=== PATIENT | female | born 1965 | race Caucasian/White ===

== ENCOUNTER 2019-06-03 22:07 | Inpatient (IN) | payer MEDICARE, OTHER ==
[2019-06-04 00:34] VITALS: BMI 15.5
[2019-06-04] MEDS ORDERED: HYDROmorphone 0.5 MG/0.5 ML SYRINGE IVP STA (02:30)
[2019-06-04] MEDS ORDERED: IPRATROPIUM-ALBUTEROL 3 ML NEB INHALATION PRN (02:31)
[2019-06-04] MEDS ORDERED: NITROGLYCERIN SL TABS 0.4 MG TAB SUBLINGUAL PRN (02:31)
[2019-06-04] MEDS ORDERED: ALBUTEROL NEBULIZED 2.5 MG/3 ML INHALATION PRN (02:33)
[2019-06-04] MEDS: NICOTINE 14MG/24HR PATCH TRANSDERM SCH ×2 (03:28→09:11)
[2019-06-04] MEDS: SODIUM CHLORIDE 0.9% 1,000 ML IV SCH (03:28)
[2019-06-04] MEDS: ZOLPIDEM 10 MG TAB PO SCH ×2 (03:34→21:56)
[2019-06-04] MEDS: PIPERACILLIN-TAZOBACTAM 3.375 GM in SODIUM CHLORIDE 0.9% 100 ML IVPB SCH ×3 (04:51→19:15)
[2019-06-04] MEDS: HYDROcodone/APAP 5-325MG 1 EACH TAB PO PRN ×4 (04:54→21:56)
[2019-06-04 08:16] LABS: Basophils % (A) 0 %; Eosinophils % (A) 0 %; HCT 40.7 % (34.0-46.0); Lymphocytes # (A) 0.3 k/uL (1.0-4.8); Lymphocytes % (A) 6 %; MCH 31.8 pg (25.0-35.0); MCHC 31.9 g/dL (31.0-37.0); MCV 99.5 fL (80.0-100.0); Mean Platelet Volume 7.2; Monocytes # (A) 0.1 k/uL (0-1.0); Monocytes % (A) 2 %; Neutrophils # (A) 4.7 k/uL (1.3-7.7); Neutrophils % (A) 91 %; Platelet Count 232 k/uL (150-450); RBC 4.09 m/uL (3.80-5.40); RDW 12.9 % (11.5-15.5); WBC 5.2 k/uL (3.8-10.6)
[2019-06-04 08:24] LABS: Albumin 3.7 g/dL (3.5-5.0); Calcium 8.8 mg/dL (8.4-10.2); Potassium 3.8 mmol/L (3.5-5.1); Total Bilirubin 0.3 mg/dL (0.2-1.3); Total Protein 6.1 g/dL (6.3-8.2)
[2019-06-04] MEDS ORDERED: FAMOTIDINE 20 MG TAB PO SCH (09:00)
[2019-06-04] MEDS: GABAPENTIN 300 MG CAP PO SCH ×3 (09:10→20:26)
[2019-06-04] MEDS: PRAVASTATIN SODIUM 40 MG TAB PO SCH (09:10)
[2019-06-04] MEDS: predniSONE 5 MG TAB PO SCH (09:10)
[2019-06-04] MEDS: FUROSEMIDE 40 MG TAB PO SCH (09:10)
[2019-06-04] MEDS: PARoxetine 20 MG TAB PO SCH (09:10)
[2019-06-04] MEDS: POTASSIUM CHLORIDE ER 10 MEQ TAB.ER.PRT PO SCH (09:10)
[2019-06-04] MEDS: EZETIMIBE 10 MG TAB PO SCH (09:11)
[2019-06-04] MEDS: HEPARIN SODIUM,PORCINE 5,000 UNIT/ML 1 ML VIAL SQ SCH ×2 (09:11→16:13)
[2019-06-04] MEDS: CARVEDILOL 3.125 MG TAB PO SCH ×2 (09:11→16:14)
--- NOTE | 2019-06-04 12:39 | P.HPIM ---
History of Present Illness H&P Date: 06/04/19 Chief Complaint: Left elbow swelling Patient is a 54-year-old female with a known history of asthma/COPD, hypertension, hyperlipidemia, and depression was initially presented to [facility] with complaints of left elbow swelling and pain for the past 2-3 days. Patient had wound below the left elbow and was having upper limb drainage which made her to go to ER. Patient had extensive history of left elbow infections. In October 2018 patient had similar symptoms and failed multiple antibiotic regimen. Patient was also on IV antibiotics in December 2018 for possible osteomyelitis. Patient was seen by orthopedic surgery. She also had surgery on the left elbow on 05/06/2019 for possible BURSA infection. Patient does have history of MRSA. Patient was initially seen at [facility] and was sent to [facility] for infection disease evaluation. Patient does not have any purulent drainage noted at this time. Patient was given a dose of vancomycin at [facility] but patient developed rash and ALLERGIC reaction. Patient is currently on Zosyn. Daptomycin was added. Patient otherwise denied any complaints of fever or chills. No leukocytosis. X-ray of the left elbow done at the [facility] showed no acute fracture dislocation or FLUID collection. Review of Systems Constitutional: Patient denies any fever or chills . No generalized weakness or weight loss. Abdomen: Patient denied nausea vomiting and diarrhea and abdominal pain. Cardiovascular: Patient denies any chest pain or short of breath no palpitations. Respiratory: patient denied any cough is from production. No shortness of breath Neurologic: Patient denied any numbness or tingling headache. Musculoskeletal: Patient denies any complaints of joint swelling or deformity. Left elbow swelling pain and redness Skin: Negative Psychiatric: Negative Endocrine: No heat or cold intolerance. No recent weight gain. Genitourinary: No dysuria or hematuria. All other 14 point ROS negative except the above Past Medical History Past Medical History: Asthma, Heart Failure, COPD, Hyperlipidemia, Hypertension, Renal Disease Additional Past Medical History / Comment(s): Bronchitis, gestational diabetes, braydrcardia History of Any Multi-Drug Resistant Organisms: MRSA Date of last positivie culture/infection: February 2019 MDRO Source:: Left elbow Past Surgical History: Appendectomy, Section, Hernia Repair, Hysterectomy, Tonsillectomy Additional Past Surgical History / Comment(s): PACEMAKER (SECOND BATTER REPLACED). surgery May 06 2019 for infection in left elbow, PICC line previously Past Anesthesia/Blood Transfusion Reactions: Previous Problems w/ Anesthesia Additional Past Anesthesia/Blood Transfusion Reaction / Comment(s): Early waking during procedure Type of Cardiac Device: Permanent Pacemaker Device Placement Date:: 2004 Past Psychological History: Depression Additional Psychological History / Comment(s): Lives with son at home. Lives in apartment. Smoking Status: Current every day smoker Past Alcohol Use History: None Reported Additional Past Alcohol Use History / Comment(s): Patient is a lifelong nonsmoker. She denies any medical marijuana, marijuana, street drug use or alcohol use. Past Drug Use History: None Reported Additional Drug Use History / Comment(s): Patienttt is independant. lives with her son in apt.has flight of steps approx 20. Has a nebulizer. No home care services recieved. - Past Family History Mother Family Medical History: CVA/TIA, Diabetes Mellitus, Hyperlipidemia, Hypertension, Myocardial Infarction ([place]) Father Family Medical History: Coronary Artery Disease (CAD), Diabetes Mellitus Additional Family Medical History / Comment(s): Cardiac stents Medications and Allergies Home Medications Medication Instructions Recorded Confirmed Type Albuterol Inhaler [Ventolin Hfa 1 - 2 puff INHALATION RT-Q6H PRN 08/15/17 06/04/19 History Inhaler] Ezetimibe [Zetia] 10 mg PO DAILY 08/15/17 06/04/19 History Ipratropium/Albuterol Sulfate 2 puff INHALATION RT-Q6H PRN 08/15/17 06/04/19 History [Combivent Respimat Inhaler] Nitroglycerin Sl Tabs [Nitrostat] 0.4 mg SUBLINGUAL Q5M PRN 08/15/17 06/04/19 History Pravastatin Sodium [Pravachol] 40 mg PO DAILY 08/15/17 06/04/19 History Gabapentin [Neurontin] 300 mg PO TID 06/19/18 06/04/19 History predniSONE 5 mg PO DAILY 06/19/18 06/04/19 History rOPINIRole HCL [Requip] 1 mg PO HS 06/19/18 06/04/19 History Carvedilol [Coreg] 3.125 mg PO BID 06/04/19 06/04/19 History Furosemide [Lasix] 40 mg PO DAILY 06/04/19 06/04/19 History PARoxetine [Paxil] 20 mg PO DAILY 06/04/19 06/04/19 History Potassium Chloride ER [K-Dur 10] 10 meq PO DAILY 06/04/19 06/04/19 History Zolpidem [Ambien] 10 mg PO HS 06/04/19 06/04/19 History Allergies Allergy/AdvReac Type Severity Reaction Status Date / Time doxycycline [From Vibramycin] Allergy Mild Swelling Verified 06/04/19 07:41 TRABUTALINE Allergy Anaphylaxis Uncoded 06/04/19 07:41 Physical Exam Vitals: Vital Signs Temp Pulse Resp BP Pulse Ox 06/04/19 05:00 97.9 F 64 16 125/70 92 L 06/04/19 00:36 99.5 F 87 18 158/89 94 L Intake and Output 06/03/19 06/04/19 06/04/19 22:59 06:59 14:59 Intake Total 1500 Balance 1500 Intake: Intake, IV Titration 500 Amount Piperacillin-Tazobactam 3 100 .375 gm In Sodium Chloride 0.9% 100 ml @ 25 mls/hr IVPB Q8H [facility] Rx#: [id number] Sodium Chloride 0.9% 1, 400 000 ml @ 50 mls/hr IV . Q20H [facility] Rx#:[id number] Oral 1000 Other: Voiding Method Toilet # Voids 4 Weight 36.2 kg PHYSICAL EXAMINATION: Patient is lying in the bed comfortably, no acute distress, awake alert and oriented.. HEENT: Normocephalic. Neck is supple. Pupils reactive. Nostrils clear. Oral cavity is moist. Ears reveal no drainage. Neck reveals no JVD, carotid bruits, or thyromegaly. CHEST EXAMINATION: Trachea is central. Symmetrical expansion. Bibasilar diminished air entry. Lung pepper clear to auscultation and percussion. CARDIAC: Normal S1, S2 with no gallops. No murmurs ABDOMEN: Soft. Bowel sounds normal. No organomegaly. No abdominal bruits. Extremities: reveal no edema. No clubbing or cyanosis Neurologically awake, alert, oriented x3 with well-coordinated movements. No focal deficits noted Skin: No rash or skin lesions. Psychiatric: Coperative. Nonsuicidal Musculoskeletal: No joint swelling or deformity. Normal range of motion. Left elbow swelling. Redness and warm. Normal range of motion. No purulent d rainage noted currently. Small wound on the elbow doesn't seem infected. Results CBC & Chem 7: 06/04/19 07:45 06/04/19 07:45 Labs: Abnormal Lab Results - Last 24 Hours (Table) 06/04/19 06/04/19 Range/Units 07:45 07:45 Lymphocytes # 0.3 L (1.0-4.8) k/uL BUN 23 H (7-17) mg/dL Creatinine 1.10 H (0.52-1.04) mg/dL Glucose 219 H (74-99) mg/dL AST 81 H (14-36) U/L ALT 60 H (9-52) U/L Total Protein 6.1 L (6.3-8.2) g/dL Thrombosis Risk Factor Assmnt - DVT/VTE Prophylaxis DVT/VTE Prophylaxis: Pharmacologic Prophylaxis ordered - Choose All That Apply Each Factor Represents 1 point: Abnormal pulmonary function (COPD), Age 41-60 years Other Risk Factors: No Thrombosis Risk Factor Assessment Total Risk Factor Score: 2 Thrombosis Risk Factor Assessment Level: Low Risk Assessment and Plan Assessment: Left elbow cellulitis with history of recent surgery on May 06 2019 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 Chronic steroid-dependent. Currently with a smoker Depression Hypertension Hyperlipidemia History of permanent pacemaker placement Chronic CHF with ejection fraction unknown Restless leg syndrome DVT prophylaxis with heparin subcu Plan: patient will be continued on antibiotics in the form of daptomycin. Patient ALLERGY to vancomycin. ID will be consulted and follow-up wound culture reports. And his breathing treatments and other home medications. Further rec ommendations based on the clinical course. Smoking cessation has been counseled extensively. Time with Patient: Greater than 30
[2019-06-05] MEDS: HEPARIN SODIUM,PORCINE 5,000 UNIT/ML 1 ML VIAL SQ SCH ×3 (00:42→15:44)
[2019-06-05] MEDS: PIPERACILLIN-TAZOBACTAM 3.375 GM in SODIUM CHLORIDE 0.9% 100 ML IVPB SCH ×3 (03:49→19:31)
[2019-06-05] MEDS: SODIUM CHLORIDE 0.9% 1,000 ML IV SCH (04:10)
[2019-06-05] MEDS: POTASSIUM CHLORIDE ER 10 MEQ TAB.ER.PRT PO SCH (08:15)
[2019-06-05] MEDS: FUROSEMIDE 40 MG TAB PO SCH (08:15)
[2019-06-05] MEDS: GABAPENTIN 300 MG CAP PO SCH ×3 (08:15→21:22)
[2019-06-05] MEDS: CARVEDILOL 3.125 MG TAB PO SCH ×2 (08:15→18:17)
[2019-06-05] MEDS: predniSONE 5 MG TAB PO SCH (08:15)
[2019-06-05] MEDS: FAMOTIDINE 20 MG TAB PO SCH (08:15)
[2019-06-05] MEDS: EZETIMIBE 10 MG TAB PO SCH (08:16)
[2019-06-05] MEDS: NICOTINE 14MG/24HR PATCH TRANSDERM SCH (08:16)
[2019-06-05] MEDS: PRAVASTATIN SODIUM 40 MG TAB PO SCH (08:16)
[2019-06-05] MEDS: PARoxetine 20 MG TAB PO SCH (08:16)
[2019-06-05] MEDS: HYDROcodone/APAP 5-325MG 1 EACH TAB PO PRN ×4 (08:30→23:07)
--- NOTE | 2019-06-05 09:22 | P.CONS ---
History of Present Illness - Reason for Consult Consult date: 06/05/19 Infected elbow, MRSA history - History of Present Illness This is a 54-year-old female known to ID service as she was seen in 2017 pacemaker site infection. The patient gives history of a 3 years ago she had an injury to her left elbow creating need for stitches. She had ongoing problems requiring wound VAC and skin graft was done by Dr. Rai. In January of this year she was treated with IV antibiotics and the PICC line for possible osteomyelitis. In April of this year, patient underwent I&D done by Dr. Abel in [place] for possible bursitis infection. She was then treated with doxycycline for 3 week course. This had completely healed. She recently hit her elbow on the door jam and developed significant swelling and pain to the left elbow. The area popped and started draining. Patient initially presented to [facility] and then was transferred to [facility] as a direct admit. X-rays at [facility] in the left elbow showed no acute fracture or dislocation or fluid collection. Patient has been afebrile, white count 5.2, creatinine 1.1 low blood sugar 219. AST 81, ALT 60, alkaline phosphatase 66, albumin 3.7. Patient has been on daptomycin and Zosyn. She does have history of MRSA. Wound culture and blood culture were obtained at [facility] and reports are currently pending. Patient has had significant improvement of the swelling and the area has stopped draining. Review of Systems Constitutional: Denies anorexia, Denies chills, Denies fatigue, Denies fever, Denies lethargy, Denies malaise, Denies weakness Ears, nose, mouth and throat: Denies dysphagia, Denies nasal congestion, Denies sore throat, Denies vertigo Cardiovascular: Denies chest pain, Denies edema, Denies leg edema, Denies shortness of breath, Denies syncope Respiratory: Reports cough, Reports wheezing, Denies congestion, Denies cough with sputum, Denies dyspnea, Denies excessive sputum, Denies hemoptysis, Denies home oxygen, Denies respiratory infections Gastrointestinal: Denies abdominal pain, Denies diarrhea, Denies loss of appetite, Denies nausea, Denies vomiting Genitourinary: Denies dysuria Musculoskeletal: Denies frequent falls, Denies gait dysfunction, Denies myalgias Musculoskeletal: left: elbow pain, elbow stiffness, elbow swelling Integumentary: Reports wounds, Denies pruritus, Denies rash Neurological: Denies change in mentation, Denies change in speech, Denies gait dysfunction, Denies numbness, Denies weakness Psychiatric: Denies anxiety, Denies depression Past Medical History Past Medical History: Asthma, Heart Failure, COPD, Hyperlipidemia, Hypertension, Renal Disease Additional Past Medical History / Comment(s): Bronchitis, gestational diabetes, braydrcardia History of Any Multi-Drug Resistant Organisms: MRSA Year Discovered:: February 2019 MDRO Source:: Left elbow Past Surgical History: Appendectomy, Section, Hernia Repair, Hysterectomy, Tonsillectomy Additional Past Surgical History / Comment(s): PACEMAKER (SECOND BATTER REPLACED). surgery May 06 2019 for infection in left elbow, PICC line previously Past Anesthesia/Blood Transfusion Reactions: Previous Problems w/ Anesthesia Additional Past Anesthesia/Blood Transfusion Reaction / Comm: Early waking during procedure Type of Cardiac Device: Permanent Pacemaker Device Placement Date:: 2004 Past Psychological History: Depression Additional Psychological History / Comment(s): Lives with son at home. Lives in apartment. Smoking Status: Current every day smoker Past Alcohol Use History: None Reported Additional Past Alcohol Use History / Comment(s): Patient is a smoker of one pack per week for 13 years. She denies any marijuana, street drug or alcohol use. She lives at home with her son. She is on disability secondary to asthma. No animal exposures. Past Drug Use History: None Reported Additional Drug Use History / Comment(s): Patienttt is independant. lives with her son in apt.has flight of steps approx 20. Has a nebulizer. No home care services recieved. - Past Family History Mother Family Medical History: CVA/TIA, Diabetes Mellitus, Hyperlipidemia, Hypertension, Myocardial Infarction ([place]) Father Family Medical History: Coronary Artery Disease (CAD), Diabetes Mellitus Additional Family Medical History / Comment(s): Cardiac stents Medications and Allergies Home Medications Medication Instructions Recorded Confirmed Type Albuterol Inhaler [Ventolin Hfa 1 - 2 puff INHALATION RT-Q6H PRN 08/15/17 06/04/19 History Inhaler] Ezetimibe [Zetia] 10 mg PO DAILY 08/15/17 06/04/19 History Ipratropium/Albuterol Sulfate 2 puff INHALATION RT-Q6H PRN 08/15/17 06/04/19 History [Combivent Respimat Inhaler] Nitroglycerin Sl Tabs [Nitrostat] 0.4 mg SUBLINGUAL Q5M PRN 08/15/17 06/04/19 History Pravastatin Sodium [Pravachol] 40 mg PO DAILY 08/15/17 06/04/19 History Gabapentin [Neurontin] 300 mg PO TID 06/19/18 06/04/19 History predniSONE 5 mg PO DAILY 06/19/18 06/04/19 History rOPINIRole HCL [Requip] 1 mg PO HS 06/19/18 06/04/19 History Carvedilol [Coreg] 3.125 mg PO BID 06/04/19 06/04/19 History Furosemide [Lasix] 40 mg PO DAILY 06/04/19 06/04/19 History PARoxetine [Paxil] 20 mg PO DAILY 06/04/19 06/04/19 History Potassium Chloride ER [K-Dur 10] 10 meq PO DAILY 06/04/19 06/04/19 History Zolpidem [Ambien] 10 mg PO HS 06/04/19 06/04/19 History Allergies Allergy/AdvReac Type Severity Reaction Status Date / Time doxycycline [From Vibramycin] Allergy Mild Swelling Verified 06/04/19 07:41 TRABUTALINE Allergy Anaphylaxis Uncoded 06/04/19 07:41 Physical Exam Vitals: Vital Signs Temp Pulse Resp BP Pulse Ox 06/05/19 04:49 97.1 F L 81 16 144/82 93 L 06/04/19 19:59 99.0 F 71 16 116/62 98 06/04/19 12:49 98.3 F 77 16 145/72 98 Intake and Output 06/04/19 06/05/19 06/05/19 22:59 06:59 14:59 Intake Total 590 Balance 590 Intake: Oral 590 Other: Voiding Method Toilet Toilet # Voids 2 2 Weight 36.3 kg Gen: This is a thin cachectic appearing 54-year-old female. Patient is sitting up in bed and eating breakfast appears to be in no acute distress. HEENT: Head is atraumatic, normocephalic. Pupils equal, round. Sclerae is anicteric. NECK: Supple. No JVD. No lymphadenopathy. No thyromegaly. LUNGS: Expiratory wheeze throughout. No intercostal retractions. HEART: Regular rate and rhythm. No murmur. ABDOMEN: Soft. Bowel sounds are present. No masses. No tenderness. EXTREMITIES: No pedal edema. No calf tenderness. Dorsalis pedis 1+ bilaterally. Left elbow has healing wound. No active drainage. Edema has significantly improved from yesterday according to the patient and her nurse. NEUROLOGICAL: Patient is awake, alert and oriented x3. Cranial nerves 2 through 12 are grossly intact. Results Results: Laboratory Results WBC 5.2 k/uL (3.8-10.6) 06/04/19 07:45 RBC 4.09 m/uL (3.80-5.40) 06/04/19 07:45 Hgb 13.0 gm/dL (11.4-16.0) 06/04/19 07:45 Hct 40.7 % (34.0-46.0) 06/04/19 07:45 MCV 99.5 fL (80.0-100.0) 06/04/19 07:45 MCH 31.8 pg (25.0-35.0) 06/04/19 07:45 MCHC 31.9 g/dL (31.0-37.0) 06/04/19 07:45 RDW 12.9 % (11.5-15.5) 06/04/19 07:45 Plt Count 232 k/uL (150-450) 06/04/19 07:45 Neutrophils % 91 % 06/04/19 07:45 Lymphocytes % 6 % 06/04/19 07:45 Monocytes % 2 % 06/04/19 07:45 Eosinophils % 0 % 06/04/19 07:45 Basophils % 0 % 06/04/19 07:45 Neutrophils # 4.7 k/uL (1.3-7.7) 06/04/19 07:45 Lymphocytes # 0.3 k/uL (1.0-4.8) L 06/04/19 07:45 Monocytes # 0.1 k/uL (0-1.0) 06/04/19 07:45 Eosinophils # 0.0 k/uL (0-0.7) 06/04/19 07:45 Basophils # 0.0 k/uL (0-0.2) 06/04/19 07:45 Sodium 141 mmol/L (137-145) 06/04/19 07:45 Potassium 3.8 mmol/L (3.5-5.1) 06/04/19 07:45 Chloride 106 mmol/L (98-107) 06/04/19 07:45 Carbon Dioxide 26 mmol/L (22-30) 06/04/19 07:45 Anion Gap 9 mmol/L 06/04/19 07:45 BUN 23 mg/dL (7-17) H 06/04/19 07:45 Creatinine 1.10 mg/dL (0.52-1.04) H 06/04/19 07:45 Est GFR (CKD-EPI)AfAm 66 (>60 ml/min/1.73 sqM) 06/04/19 07:45 Est GFR (CKD-EPI)NonAf 58 (>60 ml/min/1.73 sqM) 06/04/19 07:45 Glucose 219 mg/dL (74-99) H 06/04/19 07:45 Calcium 8.8 mg/dL (8.4-10.2) 06/04/19 07:45 Total Bilirubin 0.3 mg/dL (0.2-1.3) 06/04/19 07:45 AST 81 U/L (14-36) H 06/04/19 07:45 ALT 60 U/L (9-52) H 06/04/19 07:45 Alkaline Phosphatase 66 U/L (38-126) 06/04/19 07:45 Total Protein 6.1 g/dL (6.3-8.2) L 06/04/19 07:45 Albumin 3.7 g/dL (3.5-5.0) 06/04/19 07:45 CBC & Chem 7: 06/04/19 07:45 06/04/19 07:45 Assessment and Plan Plan: This is a 54-year-old female presents to hospital with left elbow cellulitis possible abscess that is subsequently drained on its own. Patient was initially seen at [facility] and blood culture and wound culture have been obtained. Results will be obtained if available. Patient is currently on daptomycin and Zosyn which will be continued. Patient does have history of MRSA. Tetanus status is up-to-date Continue supportive care. Further recommendations patient progresses. The above dictated assessment and findings were discussed with Dr. Jenkins. The impression and plan of care have been directed as dictated. Radha Ayala nurse practitioner acting as scribe for Dr. Jenkins.
--- NOTE | 2019-06-05 22:24 | P.CON ---
Consult Note - . Consult date: 06/05/19 Assessment/Plan:: This is a 54-year-old female known to ID service as she was seen in 2017 pacemaker site infection. The patient gives history of a 3 years ago she had an injury to her left elbow creating need for stitches. She had ongoing pr oblems requiring wound VAC and skin graft was done by Dr. Rai. In January of this year she was treated with IV antibiotics and the PICC line for possible osteomyelitis. In April of this year, patient underwent I&D done by Dr. Abel in [place] for possible bursitis infection. She was then treated with doxycycline for 3 week course. This had completely healed. She recently hit her elbow on the door jam and developed significant swelling and pain to the left elbow. The area popped and started draining. Patient initially presented to [facility] and then was transferred to [facility] as a direct admit. X-rays at [facility] in the left elbow showed no acute fracture or dislocation or fluid collection. Patient has been afebrile, white count 5.2, creatinine 1.1 low blood sugar 219. AST 81, ALT 60, alkaline phosphatase 66, albumin 3.7. Patient has been on daptomycin and Zosyn. She does have history of MRSA. Wound culture and blood culture were obtained at [facility] and reports are currently pending. Patient has had significant improvement of the swelling and the area has stopped draining. Please see the consult is dictated by nurse practitioner Radha Manleyrafaela. This 54-year-old woman does have a history of prior olecranon bursitis in the past and more recently has also had difficulties requiring surgical intervention. She then had the sudden onset of the swelling in with a spontaneous drainage is feeling somewhat better. Antimicrobial therapy is appropriate this point in time with daptomycin given her vancomycin ALLERGY. As well as Zosyn for now until further cultures are available. She does have the known history of MRSA and this is being addressed. Local wound care to the site is requested, she should elevate it as much as she can throughout the day. We do await the culture results from the outside hospital which will hopefully help direct therapy quickly since she is feeling considerably better. There is no need for any surgical intervention at this time but may need to follow up with her surgeon in the outpatient setting. I agree with evaluation, assessment and plan is dictated by nurse practitioner Mrs. Radha Ayala.
--- NOTE | 2019-06-05 23:58 | P.PN ---
Subjective Progress Note Date: 06/05/19 Principal diagnosis: Left elbow cellulitis and abscess Patient is a 54-year-old female with a known history of asthma/COPD, hypertension, hyperlipidemia, and depression was initially presented to [facility] with complaints of left elbow swelling and pain for the past 2-3 days. Patient had wound below the left elbow and was having upper limb drainage which made her to go to ER. Patient had extensive history of left elbow infections. In October 2018 patient had similar symptoms and failed multiple antibiotic regimen. Patient was also on IV antibiotics in December 2018 for possible osteomyelitis. Patient was seen by orthopedic surgery. She also had surgery on the left elbow on 05/06/2019 for possible BURSA infection. Patient does have history of MRSA. Patient was initially seen at [facility] and was sent to [facility] for infection disease evaluation. Patient does not have any purulent drainage noted at this time. Patient was given a dose of vancomycin at [facility] but patient developed rash and ALLERGIC reaction. Patient is currently on Zosyn. Daptomycin was added. Patient otherwise denied any complaints of fever or chills. No leukocytosis. X-ray of the left elbow done at the [facility] showed no acute fracture dislocation or FLUID collection. 06/05/2019 Patient denied any complaints of chest pain or shortness of breath. Patient was confused and trying to climb window last night after giving Ativan dose. Currently patient is awake alert and oriented 3. Otherwise patient is being continued on antibiotics in the form of daptomycin and Zosyn. Left elbow swelling is much improved. No purulent drainage is noted but wound has purulent base. ID is following. Current medications reviewed. Objective - Vital Signs Vital signs: Vital Signs Temp 97.1 F L 06/05/19 04:49 Pulse 81 06/05/19 04:49 Resp 16 06/05/19 04:49 BP 144/82 06/05/19 04:49 Pulse Ox 93 L 06/05/19 04:49 Intake & Output 06/04/19 06/05/19 06/05/19 18:59 06:59 18:59 Intake Total 450 590 Balance 450 590 Weight 36.2 kg 36.3 kg Intake: Intake, IV Titration 450 Amount DAPTOmycin 250 mg In 50 Sodium Chloride 0.9% 50 ml @ 100 mls/hr IVPB Q24H [facility] Rx#:[id number] Sodium Chloride 0.9% 1, 400 000 ml @ 50 mls/hr IV . Q20H [facility] Rx#:[id number] Oral 590 Other: Voiding Method Toilet Toilet Toilet # Voids 2 - Exam PHYSICAL EXAMINATION: Patient is lying in the bed comfortably, no acute distress, awake alert and oriented.. HEENT: Normocephalic. Neck is supple. Pupils reactive. Nostrils clear. Oral ca vity is moist. Ears reveal no drainage. Neck reveals no JVD, carotid bruits, or thyromegaly. CHEST EXAMINATION: Trachea is central. Symmetrical expansion. Bibasilar diminished air entry. Lung pepper clear to auscultation and percussion. CARDIAC: Normal S1, S2 with no gallops. No murmurs ABDOMEN: Soft. Bowel sounds normal. No organomegaly. No abdominal bruits. Extremities: reveal no edema. No clubbing or cyanosis Neurologically awake, alert, oriented x3 with well-coordinated movements. No focal deficits noted Skin: No rash or skin lesions. Psychiatric: Coperative. Nonsuicidal Musculoskeletal: No joint swelling or deformity. Normal range of motion. Left elbow swelling. Redness and warm. Normal range of motion. No purulent drainage noted currently. Small wound on the elbow doesn't seem infected. - Labs CBC & Chem 7: 06/04/19 07:45 06/04/19 07:45 Assessment and Plan Assessment: Left elbow cellulitis and abscess. Abscess was self drained. 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 Chronic steroid-dependent. Currently with a smoker Depression Hypertension Hyperlipidemia History of permanent pacemaker placement Chronic CHF with ejection fraction unknown Restless leg syndrome DVT prophylaxis with heparin subcu Plan: patient will be continued on antibiotics in the form of daptomycin and Zosyn. Patient ALLERGY to vancomycin. ID will be consulted and follow-up wound culture reports. And his breathing treatments and other home medications. Further recommendations based on the clinical course. Smoking cessation has been counseled extensively. Time with Patient: Greater than 30
[2019-06-06] MEDS: HEPARIN SODIUM,PORCINE 5,000 UNIT/ML 1 ML VIAL SQ SCH ×4 (00:03→23:25)
[2019-06-06] MEDS: PIPERACILLIN-TAZOBACTAM 3.375 GM in SODIUM CHLORIDE 0.9% 100 ML IVPB SCH ×3 (04:52→20:16)
[2019-06-06] MEDS: HYDROcodone/APAP 5-325MG 1 EACH TAB PO PRN ×5 (04:58→22:05)
[2019-06-06 07:55] LABS: Basophils # (A) 0.1 k/uL (0-0.2); Basophils % (A) 1 %; Eosinophils # (A) 0.4 k/uL (0-0.7); Eosinophils % (A) 6 %; HCT 44.1 % (34.0-46.0); HGB 14.3 gm/dL (11.4-16.0); Lymphocytes # (A) 1.7 k/uL (1.0-4.8); Lymphocytes % (A) 31 %; MCH 31.4 pg (25.0-35.0); MCHC 32.4 g/dL (31.0-37.0); MCV 97.1 fL (80.0-100.0); Mean Platelet Volume 7.2; Monocytes # (A) 0.5 k/uL (0-1.0); Monocytes % (A) 9 %; Neutrophils # (A) 2.9 k/uL (1.3-7.7); Neutrophils % (A) 51 %; Platelet Count 291 k/uL (150-450); RBC 4.54 m/uL (3.80-5.40); RDW 14.1 % (11.5-15.5); WBC 5.6 k/uL (3.8-10.6)
[2019-06-06 08:38] LABS: Calcium 8.9 mg/dL (8.4-10.2)
[2019-06-06] MEDS: NICOTINE 14MG/24HR PATCH TRANSDERM SCH (08:48)
[2019-06-06] MEDS: GABAPENTIN 300 MG CAP PO SCH ×3 (08:48→22:03)
[2019-06-06] MEDS: FUROSEMIDE 40 MG TAB PO SCH (08:48)
[2019-06-06] MEDS: EZETIMIBE 10 MG TAB PO SCH (08:49)
[2019-06-06] MEDS: CARVEDILOL 3.125 MG TAB PO SCH ×2 (08:49→17:50)
[2019-06-06] MEDS: predniSONE 5 MG TAB PO SCH (08:49)
[2019-06-06] MEDS: PARoxetine 20 MG TAB PO SCH (08:49)
[2019-06-06] MEDS: FAMOTIDINE 20 MG TAB PO SCH (08:49)
[2019-06-06] MEDS: PRAVASTATIN SODIUM 40 MG TAB PO SCH (08:49)
[2019-06-06] MEDS: POTASSIUM CHLORIDE ER 10 MEQ TAB.ER.PRT PO SCH (08:49)
[2019-06-06] MEDS ORDERED: Potassium Replacement Protocol 1 EACH MISC MISCELLANE PRN (15:34)
[2019-06-06] MEDS ORDERED: MELATONIN 3 MG TABLET PO SCH (23:00)
[2019-06-07] MEDS: PIPERACILLIN-TAZOBACTAM 3.375 GM in SODIUM CHLORIDE 0.9% 100 ML IVPB SCH ×3 (04:36→20:28)
[2019-06-07] MEDS: NICOTINE 14MG/24HR PATCH TRANSDERM SCH (09:34)
[2019-06-07] MEDS: FUROSEMIDE 40 MG TAB PO SCH (09:35)
[2019-06-07] MEDS: CARVEDILOL 3.125 MG TAB PO SCH ×2 (09:35→17:32)
[2019-06-07] MEDS: predniSONE 5 MG TAB PO SCH (09:35)
[2019-06-07] MEDS: EZETIMIBE 10 MG TAB PO SCH (09:35)
[2019-06-07] MEDS: FAMOTIDINE 20 MG TAB PO SCH (09:35)
[2019-06-07] MEDS: PRAVASTATIN SODIUM 40 MG TAB PO SCH (09:35)
[2019-06-07] MEDS: HEPARIN SODIUM,PORCINE 5,000 UNIT/ML 1 ML VIAL SQ SCH ×2 (09:35→17:33)
[2019-06-07] MEDS: GABAPENTIN 300 MG CAP PO SCH ×3 (09:36→21:54)
[2019-06-07] MEDS: POTASSIUM CHLORIDE ER 10 MEQ TAB.ER.PRT PO SCH (09:36)
[2019-06-07] MEDS: HYDROcodone/APAP 5-325MG 1 EACH TAB PO PRN ×3 (09:36→19:18)
[2019-06-07] MEDS: PARoxetine 20 MG TAB PO SCH (09:36)
[2019-06-07] MEDS: ZOLPIDEM 10 MG TAB PO PRN (22:23)
[2019-06-08] MEDS: HEPARIN SODIUM,PORCINE 5,000 UNIT/ML 1 ML VIAL SQ SCH ×4 (00:10→22:08)
[2019-06-08] MEDS: PIPERACILLIN-TAZOBACTAM 3.375 GM in SODIUM CHLORIDE 0.9% 100 ML IVPB SCH ×3 (04:15→20:22)
[2019-06-08] MEDS: NICOTINE 14MG/24HR PATCH TRANSDERM SCH (07:12)
[2019-06-08] MEDS: GABAPENTIN 300 MG CAP PO SCH ×3 (07:12→22:06)
[2019-06-08] MEDS: FAMOTIDINE 20 MG TAB PO SCH (07:12)
[2019-06-08] MEDS: EZETIMIBE 10 MG TAB PO SCH (07:12)
[2019-06-08] MEDS: FUROSEMIDE 40 MG TAB PO SCH (07:12)
[2019-06-08] MEDS: CARVEDILOL 3.125 MG TAB PO SCH ×2 (07:12→16:50)
[2019-06-08] MEDS: predniSONE 5 MG TAB PO SCH (07:13)
[2019-06-08] MEDS: HYDROcodone/APAP 5-325MG 1 EACH TAB PO PRN ×3 (07:13→16:51)
[2019-06-08] MEDS: PRAVASTATIN SODIUM 40 MG TAB PO SCH (07:13)
[2019-06-08] MEDS: POTASSIUM CHLORIDE ER 10 MEQ TAB.ER.PRT PO SCH (07:13)
[2019-06-08] MEDS: PARoxetine 20 MG TAB PO SCH (07:13)
[2019-06-08 09:01] LABS: Albumin 4.1 g/dL (3.5-5.0); Calcium 9.8 mg/dL (8.4-10.2); Total Bilirubin 0.6 mg/dL (0.2-1.3); Total Protein 6.9 g/dL (6.3-8.2)
[2019-06-08 09:29] LABS: Potassium 2.5 mmol/L (3.5-5.1)
[2019-06-08] MEDS: POTASSIUM CHLORIDE ER 20 MEQ TAB.ER PO SCH ×3 (10:11→13:06)
[2019-06-08] MEDS ORDERED: POTASSIUM CHLORIDE 20 MEQ in WATER FOR INJECTION 1 100ML.BAG IVPB STA (10:31)
--- NOTE | 2019-06-08 10:54 | P.PN ---
Subjective Progress Note Date: 06/06/19 Principal diagnosis: Left elbow cellulitis and abscess Patient is a 54-year-old female with a known history of asthma/COPD, hypertension, hyperlipidemia, and depression was initially presented to [facility] with complaints of left elbow swelling and pain for the past 2-3 days. Patient had wound below the left elbow and was having upper limb drainage which made her to go to ER. Patient had extensive history of left elbow infections. In October 2018 patient had similar symptoms and failed multiple antibiotic regimen. Patient was also on IV antibiotics in December 2018 for possible osteomyelitis. Patient was seen by orthopedic surgery. She also had surgery on the left elbow on 05/06/2019 for possible BURSA infection. Patient does have history of MRSA. Patient was initially seen at [facility] and was sent to [facility] for infection disease evaluation. Patient does not have any purulent drainage noted at this time. Patient was given a dose of vancomycin at [facility] but patient developed rash and ALLERGIC reaction. Patient is currently on Zosyn. Daptomycin was added. Patient otherwise denied any complaints of fever or chills. No leukocytosis. X-ray of the left elbow done at the [facility] showed no acute fracture dislocation or FLUID collection. 06/05/2019 Patient denied any complaints of chest pain or shortness of breath. Patient was confused and trying to climb window last night after giving Ativan dose. Currently patient is awake alert and oriented 3. Otherwise patient is being continued on antibiotics in the form of daptomycin and Zosyn. Left elbow swelling is much improved. No purulent drainage is noted but wound has purulent base. ID is following.\\ 06/06/2019 Patient did improve symptomatically. Left elbow swelling is much improved. Awaiting culture report. No nausea vomiting or abdominal pain. No other acute overnight issues. Current medications reviewed. Objective - Vital Signs Vital signs: Vital Signs Temp 98.8 F 06/06/19 20:22 Pulse 77 06/06/19 20:22 Resp 18 06/06/19 20:22 BP 187/88 06/06/19 20:22 Pulse Ox 99 06/06/19 20:22 Intake & Output 06/06/19 06/06/19 06/07/19 06:59 18:59 06:59 Intake Total 1999 750 Balance 1999 750 Weight 38 kg Intake: Intake, IV Titration 800 150 Amount DAPTOmycin 250 mg In 50 Sodium Chloride 0.9% 50 ml @ 100 mls/hr IVPB Q24H [facility] Rx#:[id number] Piperacillin-Tazobactam 3 200 100 .375 gm In Sodium Chloride 0.9% 100 ml @ 25 mls/hr IVPB Q8H [facility] Rx#: [id number] Sodium Chloride 0.9% 1, 600 000 ml @ 50 mls/hr IV . Q20H [facility] Rx#:[id number] Oral 1200 600 Other: Voiding Method Toilet Toilet # Voids 1 2 - Exam PHYSICAL EXAMINATION: Patient is lying in the bed comfortably, no acute distress, awake alert and oriented.. HEENT: Normocephalic. Neck is supple. Pupils reactive. Nostrils clear. Oral cavity is moist. Ears reveal no drainage. Neck reveals no JVD, carotid bruits, or thyromegaly. CHEST EXAMINATION: Trachea is central. Symmetrical expansion. Bibasilar diminished air entry. Lung pepper clear to auscultation and percussion. CARDIAC: Normal S1, S2 with no gallops. No murmurs ABDOMEN: Soft. Bowel sounds normal. No organomegaly. No abdominal bruits. Extremities: reveal no edema. No clubbing or cyanosis Neurologically awake, alert, oriented x3 with well-coordinated movements. No focal deficits noted Skin: No rash or skin lesions. Psychiatric: Coperative. Nonsuicidal Musculoskeletal: No joint swelling or deformity. Normal range of motion. Left elbow swelling is much improved. No purulent drainage noted currently. Small wound on the elbow doesn't seem infected. - Labs CBC & Chem 7: 06/06/19 07:24 06/08/19 08:18 Labs: Abnormal Lab Results - Last 24 Hours (Table) 06/06/19 Range/Units 07:24 Potassium 3.0 L (3.5-5.1) mmol/L BUN 19 H (7-17) mg/dL Assessment and Plan Assessment: Left elbow cellulitis and abscess. Abscess was self drained. 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 Chronic steroid-dependent. Currently with a smoker Depression Hypertension Hyperlipidemia History of permanent pacemaker placement Chronic CHF with ejection fraction unknown Restless leg syndrome DVT prophylaxis with heparin subcu Plan: patient will be continued on antibiotics in the form of daptomycin and Zosyn. Patient ALLERGY to vancomycin. ID will be consulted and follow-up wound culture reports. And his breathing treatments and other home medications. Further recommendations based on the clinical course. Smoking cessation has been counseled extensively. Time with Patient: Greater than 30
--- NOTE | 2019-06-08 16:38 | P.PN ---
Subjective Progress Note Date: 06/08/19 Principal diagnosis: This is a 54-year-old female who was recently admitted for left elbow swelling and pain and had recent surgery of the left elbow in April of this year and is being closely monitored. Patient does have a history of MRSA. Patient was seen and [facility] for this infection and was sent here for infectious disease consult. Patient is currently awaiting [facility] culture to be finalized and was told by [facility] that this will not be until tomorrow. This morning's labs found a potassium of 2.5 and was replaced current potassium is 3.6. Patient denies any chest pain, shortness of breath, or palpitations at this time. Patient is afebrile. Patient would like to go home today. Patient is currently on IV antibiotics in the form of daptomycin and Zosyn per infectious disease recommendations until culture report was received. Patient denies any pain or tenderness in the left elbow and the swelling has minimized. Guarded prognosis. Objective - Vital Signs Vital signs: Vital Signs Temp 97.4 F L 06/08/19 11:50 Pulse 80 06/08/19 11:50 Resp 18 06/08/19 11:50 BP 143/84 06/08/19 05:00 Pulse Ox 96 06/08/19 05:00 Intake & Output 06/07/19 06/08/19 06/08/19 18:59 06:59 18:59 Intake Total 1150 550 Balance 1150 550 Intake: Intake, IV Titration 150 200 Amount DAPTOmycin 250 mg In 50 Sodium Chloride 0.9% 50 ml @ 100 mls/hr IVPB Q24H [facility] Rx#:[id number] Piperacillin-Tazobactam 3 100 200 .375 gm In Sodium Chloride 0.9% 100 ml @ 25 mls/hr IVPB Q8H [facility] Rx#: [id number] Oral 1000 350 Other: Voiding Method Toilet Toilet # Voids 3 1 - Exam Gen: This is a 54-year-old female sitting up in bed in no acute distress. Vital signs are stable. Temp is 97.4F, pulse is 80, respirations are 18, blood pressure is 143/84, oxygen saturation is 96% on room air HEENT: Head is atraumatic, normocephalic. Pupils equal, round. Sclerae is anicteric. NECK: Supple. No JVD. No lymphadenopathy. No thyromegaly. LUNGS: Clear to auscultation. No wheezes or rhonchi. No intercostal retractions. HEART: Regular rate and rhythm. No murmur. ABDOMEN: Soft. Bowel sounds are present. No masses. No tenderness. EXTREMITIES: No pedal edema. No calf tenderness. Left elbow shows a small scab with no redness or swelling noted NEUROLOGICAL: Patient is awake, alert and oriented x3. Cranial nerves 2 through 12 are grossly intact. - Labs CBC & Chem 7: 06/06/19 07:24 06/08/19 15:09 Labs: Abnormal Lab Results - Last 24 Hours (Table) 06/08/19 Range/Units 08:18 Potassium 2.5 L* (3.5-5.1) mmol/L Glucose 146 H (74-99) mg/dL AST 45 H (14-36) U/L Assessment and Plan Assessment: Left elbow cellulitis and abscess. 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 Chronic steroid dependence Currently smoker: Smoking cessation counseling provided Depression Hypertension Hyperlipidemia History of permanent pacemaker placement Chronic congestive heart failure with ejection fraction unknown Restless leg syndrome DVT prophylaxis with heparin subq Recommendations and discussion Recommend continue current medications, management, and symptomatic treatment. Infectious disease is following and awaiting culture results from [facility]. Patient's potassium was replaced and improved. Guarded prognosis. Further recommendations to follow. Possible discharge in 24 hours.
--- NOTE | 2019-06-08 17:26 | P.PN ---
Subjective Progress Note Date: 06/07/19 Principal diagnosis: Left elbow cellulitis and abscess Patient is a 54-year-old female with a known history of asthma/COPD, hypertension, hyperlipidemia, and depression was initially presented to [facility] with complaints of left elbow swelling and pain for the past 2-3 days. Patient had wound below the left elbow and was having upper limb drainage which made her to go to ER. Patient had extensive history of left elbow infections. In October 2018 patient had similar symptoms and failed multiple antibiotic regimen. Patient was also on IV antibiotics in December 2018 for possible osteomyelitis. Patient was seen by orthopedic surgery. She also had surgery on the left elbow on 05/06/2019 for possible BURSA infection. Patient does have history of MRSA. Patient was initially seen at [facility] and was sent to [facility] for infection disease evaluation. Patient does not have any purulent drainage noted at this time. Patient was given a dose of vancomycin at [facility] but patient developed rash and ALLERGIC reaction. Patient is currently on Zosyn. Daptomycin was added. Patient otherwise denied any complaints of fever or chills. No leukocytosis. X-ray of the left elbow done at the [facility] showed no acute fracture dislocation or FLUID collection. 06/05/2019 Patient denied any complaints of chest pain or shortness of breath. Patient was confused and trying to climb window last night after giving Ativan dose. Currently patient is awake alert and oriented 3. Otherwise patient is being continued on antibiotics in the form of daptomycin and Zosyn. Left elbow swelling is much improved. No purulent drainage is noted but wound has purulent base. ID is following.\\ 06/06/2019 Patient did improve symptomatically. Left elbow swelling is much improved. Awaiting culture report. No nausea vomiting or abdominal pain. No other acute overnight issues. 06/07/2019 Patient's left elbow swelling is much improved now. Awaiting culture report to finalize antibiotic regimen at home. Continue with current medications including daptomycin and Zosyn. ID is on board. No fever no chills. No nausea vomiting or abdominal pain. No diarrhea. No chest pain or shortness of breath. Patient wishes to be discharged as soon as possible. Current medications reviewed. Objective - Vital Signs Vital signs: Vital Signs Temp 97.1 F L 06/07/19 11:58 Pulse 64 06/07/19 11:58 Resp 16 06/07/19 11:58 BP 149/76 06/07/19 11:58 Pulse Ox 96 06/07/19 11:58 Intake & Output 06/06/19 06/07/19 06/07/19 18:59 06:59 18:59 Intake Total 750 1280 1150 Balance 750 1280 1150 Weight 38 kg Intake: Intake, IV Titration 150 200 150 Amount DAPTOmycin 250 mg In 50 50 Sodium Chloride 0.9% 50 ml @ 100 mls/hr IVPB Q24H [facility] Rx#:[id number] Piperacillin-Tazobactam 3 100 200 100 .375 gm In Sodium Chloride 0.9% 100 ml @ 25 mls/hr IVPB Q8H [facility] Rx#: [id number] Oral 600 1080 1000 Other: Voiding Method Toilet Toilet Toilet # Voids 2 1 3 # Bowel Movements 1 - Exam PHYSICAL EXAMINATION: Patient is lying in the bed comfortably, no acute distress, awake alert and oriented.. HEENT: Normocephalic. Neck is supple. Pupils reactive. Nostrils clear. Oral cavity is moist. Ears reveal no drainage. Neck reveals no JVD, carotid bruits, or thyromegaly. CHEST EXAMINATION: Trachea is central. Symmetrical expansion. Bibasilar diminished air entry. Lung pepper clear to auscultation and percussion. CARDIAC: Normal S1, S2 with no gallops. No murmurs ABDOMEN: Soft. Bowel sounds normal. No organomegaly. No abdominal bruits. Extremities: reveal no edema. No clubbing or cyanosis Neurologically awake, alert, oriented x3 with well-coordinated movements. No focal deficits noted Skin: No rash or skin lesions. Psychiatric: Coperative. Nonsuicidal Musculoskeletal: No joint swelling or deformity. Normal range of motion. Left elbow swelling is much improved. No purulent drainage noted currently. Small wound on the elbow doesn't seem infected. - Labs CBC & Chem 7: 06/06/19 07:24 06/08/19 15:09 Assessment and Plan Assessment: Left elbow cellulitis and abscess. Abscess was self drained. 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 Chronic steroid-dependent. Currently with a smoker Depression Hypertension Hyperlipidemia History of permanent pacemaker placement Chronic CHF with ejection fraction unknown Restless leg syndrome DVT prophylaxis with heparin subcu Plan: patient will be continued on antibiotics in the form of daptomycin and Zosyn. Patient ALLERGY to vancomycin. ID will be consulted and follow-up wound culture reports. And his breathing treatments and other home medications. Further recommendations based on the clinical course. Smoking cessation has been counseled extensively. Time with Patient: Greater than 30
[2019-06-08] MEDS ORDERED: PANTOPRAZOLE 40 MG/10 ML VIAL IVP ONE (20:13)
[2019-06-08] MEDS ORDERED: CALCIUM CARBONATE 500 MG CHEWABLE PO PRN (20:14)
[2019-06-08] MEDS: ZOLPIDEM 10 MG TAB PO PRN (22:06)
[2019-06-09] MEDS: HYDROcodone/APAP 5-325MG 1 EACH TAB PO PRN ×4 (02:33→17:49)
[2019-06-09] MEDS: PIPERACILLIN-TAZOBACTAM 3.375 GM in SODIUM CHLORIDE 0.9% 100 ML IVPB SCH ×2 (03:58→15:10)
[2019-06-09 05:53] VITALS: RESP 18
[2019-06-09] MEDS: POTASSIUM CHLORIDE ER 10 MEQ TAB.ER.PRT PO SCH (07:24)
[2019-06-09] MEDS: EZETIMIBE 10 MG TAB PO SCH (07:24)
[2019-06-09] MEDS: PARoxetine 20 MG TAB PO SCH (07:24)
[2019-06-09] MEDS: FAMOTIDINE 20 MG TAB PO SCH (07:25)
[2019-06-09] MEDS: FUROSEMIDE 40 MG TAB PO SCH (07:25)
[2019-06-09] MEDS: GABAPENTIN 300 MG CAP PO SCH ×2 (07:25→15:12)
[2019-06-09] MEDS: predniSONE 5 MG TAB PO SCH (07:25)
[2019-06-09] MEDS: HEPARIN SODIUM,PORCINE 5,000 UNIT/ML 1 ML VIAL SQ SCH ×2 (07:25→15:11)
[2019-06-09] MEDS: NICOTINE 14MG/24HR PATCH TRANSDERM SCH (07:25)
[2019-06-09] MEDS: CARVEDILOL 3.125 MG TAB PO SCH ×2 (07:25→15:12)
[2019-06-09] MEDS: PRAVASTATIN SODIUM 40 MG TAB PO SCH (07:26)
[2019-06-09 12:09] VITALS: BP 153/72; PULSE 79; TEMP 96.9
--- NOTE | 2019-06-09 21:48 | P.PN ---
Subjective Progress Note Date: 06/09/19 This is a 54-year-old female known to ID service as she was seen in 2017 pacemaker site infection. The patient gives history of a 3 years ago she had an injury to her left elbow creating need for stitches. She had ongoing problems requiring wound VAC and skin graft was done by Dr. Rai. In January of this year she was treated with IV antibiotics and the PICC line for possible osteomyelitis. In April of this year, patient underwent I&D done by Dr. Abel in [place] for possible bursitis infection. She was then treated with doxycycline for 3 week course. This had completely healed. She recently hit her elbow on the door jam and developed significant swelling and pain to the left elbow. The area popped and started draining. Patient initially presented to [facility] and then was transferred to [facility] as a direct admit. X-rays at [facility] in the left elbow showed no acute fracture or dislocation or fluid collection. Patient has been afebrile, white count 5.2, creatinine 1.1 low blood sugar 219. AST 81, ALT 60, alkaline phosphatase 66, albumin 3.7. Patient has been on daptomycin and Zosyn. She does have history of MRSA. Wound culture and blood culture were obtained at [facility] and reports are currently pending. Patient has had significant improvement of the swelling and the area has stopped draining. 06/09/2019 patient much improved the elbow swelling has resolved and the ulceration has stopped draining. Wants to go home. Objective - Vital Signs Vital signs: Vital Signs Temp 96.9 F L 06/09/19 11:55 Pulse 79 06/09/19 11:55 Resp 18 06/09/19 11:55 BP 153/72 06/09/19 11:55 Pulse Ox 98 06/09/19 11:55 Intake & Output 06/09/19 06/09/19 06/10/19 06:59 18:59 06:59 Intake Total 790 150 Output Total 2 Balance 788 150 Intake: Intake, IV Titration 200 150 Amount DAPTOmycin 250 mg In 50 Sodium Chloride 0.9% 50 ml @ 100 mls/hr IVPB Q24H [facility] Rx#:[id number] Piperacillin-Tazobactam 3 200 100 .375 gm In Sodium Chloride 0.9% 100 ml @ 25 mls/hr IVPB Q8H [facility] Rx#: [id number] Oral 590 Output: Urine 2 Other: Voiding Method Toilet # Voids 2 4 # Bowel Movements 1 - Exam Gen: This is a thin cachectic appearing 54-year-old female. Patient is sitting up in bed and eating breakfast appears to be in no acute distress. HEENT: Head is atraumatic, normocephalic. Pupils equal, round. Sclerae is anicteric. NECK: Supple. No JVD. No lymphadenopathy. No thyromegaly. LUNGS: Expiratory wheeze throughout. No intercostal retractions. HEART: Regular rate and rhythm. No murmur. ABDOMEN: Soft. Bowel sounds are present. No masses. No tenderness. EXTREMITIES: No pedal edema. No calf tenderness. Dorsalis pedis 1+ bilaterally. Left elbow has healing wound. No active drainage. Edema resolved erythema resolved less tender NEUROLOGICAL: Patient is awake, alert and oriented x3. Cranial nerves 2 through 12 are grossly intact. - Labs CBC & Chem 7: 06/06/19 07:24 06/09/19 09:09 Labs: Laboratory Results WBC 5.6 k/uL (3.8-10.6) 06/06/19 07:24 RBC 4.54 m/uL (3.80-5.40) 06/06/19 07:24 Hgb 14.3 gm/dL (11.4-16.0) 06/06/19 07:24 Hct 44.1 % (34.0-46.0) 06/06/19 07:24 MCV 97.1 fL (80.0-100.0) 06/06/19 07:24 MCH 31.4 pg (25.0-35.0) 06/06/19 07:24 MCHC 32.4 g/dL (31.0-37.0) 06/06/19 07:24 RDW 14.1 % (11.5-15.5) 06/06/19 07:24 Plt Count 291 k/uL (150-450) 06/06/19 07:24 Neutrophils % 51 % 06/06/19 07:24 Lymphocytes % 31 % 06/06/19 07:24 Monocytes % 9 % 06/06/19 07:24 Eosinophils % 6 % 06/06/19 07:24 Basophils % 1 % 06/06/19 07:24 Neutrophils # 2.9 k/uL (1.3-7.7) 06/06/19 07:24 Lymphocytes # 1.7 k/uL (1.0-4.8) 06/06/19 07:24 Monocytes # 0.5 k/uL (0-1.0) 06/06/19 07:24 Eosinophils # 0.4 k/uL (0-0.7) 06/06/19 07:24 Basophils # 0.1 k/uL (0-0.2) 06/06/19 07:24 Sodium 141 mmol/L (137-145) 06/08/19 08:18 Potassium 4.0 mmol/L (3.5-5.1) 06/09/19 09:09 Chloride 103 mmol/L (98-107) 06/08/19 08:18 Carbon Dioxide 26 mmol/L (22-30) 06/08/19 08:18 Anion Gap 12 mmol/L 06/08/19 08:18 BUN 16 mg/dL (7-17) 06/08/19 08:18 Creatinine 1.01 mg/dL (0.52-1.04) 06/08/19 08:18 Est GFR (CKD-EPI)AfAm 74 (>60 ml/min/1.73 sqM) 06/08/19 08:18 Est GFR (CKD-EPI)NonAf 64 (>60 ml/min/1.73 sqM) 06/08/19 08:18 Glucose 146 mg/dL (74-99) H 06/08/19 08:18 Calcium 9.8 mg/dL (8.4-10.2) 06/08/19 08:18 Total Bilirubin 0.6 mg/dL (0.2-1.3) 06/08/19 08:18 AST 45 U/L (14-36) H 06/08/19 08:18 ALT 50 U/L (9-52) 06/08/19 08:18 Alkaline Phosphatase 69 U/L (38-126) 06/08/19 08:18 Total Protein 6.9 g/dL (6.3-8.2) 06/08/19 08:18 Albumin 4.1 g/dL (3.5-5.0) 06/08/19 08:18 Assessment and Plan (1) Infection of left elbow Narrative/Plan: This 54-year-old woman does have a history of prior olecranon bursitis in the past and more recently has also had difficulties requiring surgical intervention. She then had the sudden onset of the swelling in with a spontaneous drainage is feeling somewhat better. Antimicrobial therapy is appropriate this point in time with daptomycin given her vancomycin ALLERGY. As well as Zosyn for now until further cultures are available. She does have the known history of MRSA and this is being addressed. Local wound care to the site is requested, she should elevate it as much as she can throughout the day. We do await the culture results from the outside hospital which will hopefully help direct therapy quickly since she is feeling considerably better. There is no need for any surgical intervention at this time but may need to follow up with her surgeon in the outpatient setting. 06/09/2019 now feeling much better no pain and site is improved. Agree with discharge, Bactrim sent to pharmacy as was nicotine patch, toradol for pain Status: Acute Code(s): M00.9 - PYOGENIC ARTHRITIS, UNSPECIFIED SNOMED Code(s): 245865319 (2) Fever, unknown origin Status: Acute Code(s): R50.9 - FEVER, UNSPECIFIED SNOMED Code(s): 8041271
--- NOTE | 2019-06-09 22:34 | P.DS ---
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 Patient will be going home on a course of oral antibiotics and an anti- inflammatory per ID recommendations. History of present illness This is a 54 year old female that was recently admitted for left elbow swelling, pain, and infection that she was transferred from [facility] for further evaluation from infectious disease. Patient was found to have hypokalemia which was replaced and is currently 4.0. Patient denies any chest pain, shortness of breath, or palpitations at this time. Patient denies any nausea or vomiting and tolerated diet. Patient will be following up with infectious disease in the outpatient setting. Patient is afebrile. Patient is awaiting to be discharged to home today. ID was awaiting finalized wound cultures from [place]. Patients condition is stable for discharge at this time. Guarded prognosis. On exam vital signs are stable. Blood pressure is 153/72, pulse is 79, temp is 96.9F, resp are 18, and oxygen saturation is 98% on room air. Cardio S1 and S2 are muffled. Respiratory system shows diminished breath sounds at the bases otherwise clear to auscultation. Abdomen is thin, soft and non-tender. Nervous system shows no focal deficits. Please refer to medication reconciliation sheet for a list of medications. Patient Condition at Discharge: Good Plan - Discharge Summary Discharge Rx Participant: No New Discharge Prescriptions: New Sulfamethox-Tmp 800-160Mg [Bactrim DS 800-160 mg] 1 tab PO Q12HR #14 tab Nicotine 21Mg/24Hr Patch [Habitrol] 1 each TRANSDERM DAILY #30 patch Ketorolac [Toradol] 10 mg PO Q6HR PRN #20 tab PRN Reason: Pain Continue Nitroglycerin Sl Tabs [Nitrostat] 0.4 mg SUBLINGUAL Q5M PRN PRN Reason: Chest Pain Pravastatin Sodium [Pravachol] 40 mg PO DAILY Ipratropium/Albuterol Sulfate [Combivent Respimat Inhaler] 2 puff INHALATION RT-Q6H PRN PRN Reason: Shortness Of Breath Ezetimibe [Zetia] 10 mg PO DAILY Albuterol Inhaler [Ventolin Hfa Inhaler] 1 - 2 puff INHALATION RT-Q6H PRN PRN Reason: Shortness Of Breath rOPINIRole HCL [Requip] 1 mg PO HS Gabapentin [Neurontin] 300 mg PO TID predniSONE 5 mg PO DAILY Zolpidem [Ambien] 10 mg PO HS PARoxetine [Paxil] 20 mg PO DAILY Carvedilol [Coreg] 3.125 mg PO BID Potassium Chloride ER [K-Dur 10] 10 meq PO DAILY Furosemide [Lasix] 40 mg PO DAILY Discharge Medication List Albuterol Inhaler [Ventolin Hfa Inhaler] 1 - 2 puff INHALATION RT-Q6H PRN 08/15/17 [History] Ezetimibe [Zetia] 10 mg PO DAILY 08/15/17 [History] Ipratropium/Albuterol Sulfate [Combivent Respimat Inhaler] 2 puff INHALATION RT- Q6H PRN 08/15/17 [History] Nitroglycerin Sl Tabs [Nitrostat] 0.4 mg SUBLINGUAL Q5M PRN 08/15/17 [History] Pravastatin Sodium [Pravachol] 40 mg PO DAILY 08/15/17 [History] Gabapentin [Neurontin] 300 mg PO TID 06/19/18 [History] predniSONE 5 mg PO DAILY 06/19/18 [History] rOPINIRole HCL [Requip] 1 mg PO HS 06/19/18 [History] Carvedilol [Coreg] 3.125 mg PO BID 06/04/19 [History] Furosemide [Lasix] 40 mg PO DAILY 06/04/19 [History] PARoxetine [Paxil] 20 mg PO DAILY 06/04/19 [History] Potassium Chloride ER [K-Dur 10] 10 meq PO DAILY 06/04/19 [History] Zolpidem [Ambien] 10 mg PO HS 06/04/19 [History] Ketorolac [Toradol] 10 mg PO Q6HR PRN #20 tab 06/09/19 [Rx] Nicotine 21Mg/24Hr Patch [Habitrol] 1 each TRANSDERM DAILY #30 patch 06/09/19 [Rx] Sulfamethox-Tmp 800-160Mg [Bactrim DS 800-160 mg] 1 tab PO Q12HR #14 tab 06/09/19 [Rx] Follow up Appointment(s)/Referral(s): Rory Jenkins MD [STAFF PHYSICIAN] - 1 Week (Patient to call Dr. Jenkins's office Sat. morning to schedule follow up appointment. The office is closed at time of discharge. ) Luca Ramirez MD [REFERRING] - 1 Week (Patient to call Dr. Ramirez's office Sat. morning to schedule follow up appointment. The office is closed at time of discharge. ) Ambulatory/Diagnostic Orders: Basic Metabolic Panel [LAB.AMB] Time Frame: 2 Days, Location: None Selected Patient Instructions/Handouts: Sulfamethoxazole/Trimethoprim (By mouth), Nicotine (Absorbed through the skin), Ketorolac (By mouth), Wound Infection (DC) Activity/Diet/Wound Care/Special Instructions: Activity Limited until follow-up Repeat labs in 2-3 days. Continue current diet Discharge Disposition: HOME SELF-CARE
== END 2019-06-09 18:16 | disposition home or self-care (01) | DRG 603 ==
LOC: 3NMEDONC 06-04
PROVIDERS: ADMIT Internal Medicine; ATTEND Internal Medicine
DX: L03.114 Cellulitis of left upper limb (principal); M00.9 Pyogenic arthritis, unspecified; F17.210 Nicotine dependence, cigarettes, uncomplicated; F32.9 Major depressive disorder, single episode, unspecified; G25.81 Restless legs syndrome; I11.0 Hypertensive heart disease with heart failure; I50.9 Heart failure, unspecified; J44.9 Chronic obstructive pulmonary disease, unspecified; Z79.52 Long term (current) use of systemic steroids; Z79.899 Other long term (current) drug therapy; E87.6 Hypokalemia; E78.5 Hyperlipidemia, unspecified; Z82.49 Family history of ischemic heart disease and other diseases of the circulatory system; Z83.3 Family history of diabetes mellitus; Z86.14 Personal history of Methicillin resistant Staphylococcus aureus infection; Z86.32 Personal history of gestational diabetes; Z88.1 Allergy status to other antibiotic agents; Z90.710 Acquired absence of both cervix and uterus; Z95.0 Presence of cardiac pacemaker; Z82.3 Family history of stroke; Z88.8 Allergy status to other drugs, medicaments and biological substances
CPT/HCPCS: 80048; 80053; 84132; 85025

== ENCOUNTER 2020-11-27 21:15 | Inpatient (IN) | payer MEDICARE, OTHER ==
[2020-11-27] MEDS ORDERED: SODIUM CHLORIDE 0.9% 1,000 ML IV STA (21:44)
--- NOTE | 2020-11-27 22:11 | XR ---
EXAMINATION TYPE: XR chest 1V portable DATE OF EXAM: 11/27/2020 COMPARISON: 08/15/2017. HISTORY: Shortness of breath. TECHNIQUE: Single frontal view of the chest is obtained. FINDINGS: There is no focal air space opacity, pleural effusion, or pneumothorax seen. The lungs are hyperinflated with flattening of the diaphragm, suggestive of COPD. The cardiac silhouette size is w ithin normal limits. Left pacemaker is seen. The osseous structures are intact. IMPRESSION: No acute process.
[2020-11-27 22:14] LABS: Albumin 3.4 g/dL (3.5-5.0); Calcium 9.7 mg/dL (8.4-10.2); Magnesium 2.3 mg/dL (1.6-2.3); Potassium 4.1 mmol/L (3.5-5.1); Total Bilirubin 0.9 mg/dL (0.2-1.3); Total Protein 6.9 g/dL (6.3-8.2)
[2020-11-27 22:42] LABS: INR 1.7 (<1.2); Partial Thromboplastin Time 21.4 sec (22.0-30.0); Prothrombin Time 16.6 sec (9.0-12.0)
[2020-11-27 22:44] LABS: HCT 44.4 % (34.0-46.0); HGB 13.7 gm/dL (11.4-16.0); Hypochromasia Slight; MCH 28.6 pg (25.0-35.0); MCHC 30.8 g/dL (31.0-37.0); MCV 92.9 fL (80.0-100.0); Platelet Count 227 k/uL (150-450); RBC 4.78 m/uL (3.80-5.40); RDW 15.2 % (11.5-15.5); WBC 21.7 k/uL (3.8-10.6)
[2020-11-27] MEDS ORDERED: cefTRIAXone IN SWFI 1,000 MG/10 ML SYRINGE IVP STA (22:50)
[2020-11-27 22:59] LABS: D-Dimer 6.83 mg/L FEU (<0.60)
[2020-11-27] MEDS ORDERED: SODIUM CHLORIDE 0.9% 1,000 ML IV ONE (23:05)
[2020-11-27] MEDS ORDERED: MAGNESIUM SULFATE-D5W PMX 1 GM in DEXTROSE/WATER 1 100ML.BAG IVPB ONE (23:12)
[2020-11-27] MEDS ORDERED: HYDROmorphone 1 MG/ML 1 ML SYRINGE IVP STA (23:12)
[2020-11-27] MEDS ORDERED: methylPREDNISolone SOD SUCCI 125 MG/2 ML VIAL IV STA (23:12)
[2020-11-27 23:16] LABS: Band Neutrophils % 9 %; Monocytes # (M) 0.22 k/uL (0-1.0); Neutrophils % (M) 90 %; Nucleated Red Blood Cells 0 /100 WBC (0-0); Total Cells Counted 100
--- NOTE | 2020-11-27 23:31 | ED ---
Weakness HPI - General Chief complaint: Weakness Stated complaint: Weakness Time Seen by Provider: 11/27/20 21:20 Source: patient, family Mode of arrival: wheelchair Limitations: altered mental status - History of Present Illness Initial comments: 55-year-old female who presents to the emergency department with generalized weakness. She is currently accompanied by her son who provides some history. Patient demonstrates significant lethargy and son is poor at providing details. Son states that she has not gotten out of bed for the past 2 weeks. Also reports that she has not ate or drank anything during this time. She was recently diagnosed with a pelvic fracture last month and saw a specialist out of [facility]. She was told to "ambulate on the fracture" as tolerated and patient did not require surgical repair. Patient has been having significant pain and therefore the son states that she has not been getting up to move. He denies any sick contacts. No fevers or chills. She denies any chest pain or cough. Patient in notable respiratory distress upon ER arrival however son denies shortness of breath. Patient does have a history of COPD. Denies any abdominal pain. No changes in her bowel or bladder habits. Remainder of the HPI is limited because the patient's current condition - Related Data Home Medications Medication Instructions Recorded Confirmed predniSONE 5 mg PO DAILY 06/19/18 11/28/20 rOPINIRole HCL [Requip] 1 mg PO TID 06/19/18 11/28/20 Furosemide [Lasix] 20 - 40 mg PO DAILY 06/04/19 11/28/20 PARoxetine [Paxil] 20 mg PO DAILY 06/04/19 11/28/20 Potassium Chloride ER [K-Dur 10] 20 meq PO DAILY 06/04/19 11/28/20 Albuterol Inhaler [Ventolin Hfa 2 puff INHALATION RT-Q4H PRN 11/28/20 11/28/20 Inhaler] Gabapentin [Neurontin] 400 mg PO TID 11/28/20 11/28/20 HYDROcodone/APAP 7.5-325MG [[place] 1 tab PO Q4-6H PRN 11/28/20 11/28/20 7.5-325] Ibuprofen [Motrin] 800 mg PO Q8H PRN 11/28/20 11/28/20 Meloxicam [Mobic] 7.5 mg PO DAILY 11/28/20 11/28/20 Zolpidem [Ambien] 5 mg PO HS PRN 11/28/20 11/28/20 cloNIDine HCL [Catapres] 0.2 mg PO BID PRN 11/28/20 11/28/20 traMADol HCL 50 mg PO Q6H PRN 11/28/20 11/28/20 Allergies Allergy/AdvReac Type Severity Reaction Status Date / Time doxycycline [From Vibramycin] Allergy Mild Swelling Verified 11/28/20 09:59 TRABUTALINE Allergy Anaphylaxis Uncoded 11/28/20 09:59 Review of Systems ROS Statement: Those systems with pertinent positive or pertinent negative responses have been documented in the HPI. ROS Other: All systems not noted in ROS Statement are negative. Past Medical History Past Medical History: Asthma, Heart Failure, COPD, Hyperlipidemia, Hypertension, Renal Disease Additional Past Medical History / Comment(s): Bronchitis, gestational diabetes, braydrcardia, broken pelvis History of Any Multi-Drug Resistant Organisms: MRSA Date of last positivie culture/infection: February 2019 MDRO Source:: Left elbow Past Surgical History: Appendectomy, Section, Hernia Repair, Hysterectomy, Tonsillectomy Additional Past Surgical History / Comment(s): PACEMAKER (SECOND BATTER REPLACED). surgery May 06 2019 for infection in left elbow, PICC line previously Past Anesthesia/Blood Transfusion Reactions: Previous Problems w/ Anesthesia Additional Past Anesthesia/Blood Transfusion Reaction / Comment(s): Early waking during procedure Type of Cardiac Device: Permanent Pacemaker Device Placement Date:: 2004 Past Psychological History: Depression Smoking Status: Never smoker Past Alcohol Use History: None Reported Past Drug Use History: None Reported - Past Family History Mother Family Medical History: CVA/TIA, Diabetes Mellitus, Hyperlipidemia, Hypertension, Myocardial Infarction ([place]) Father Family Medical History: Coronary Artery Disease (CAD), Diabetes Mellitus Additional Family Medical History / Comment(s): Cardiac stents General Exam Limitations: altered mental status General appearance: lethargic, in distress, cachectic Head exam: Present: atraumatic, normocephalic Eye exam: Present: PERRL, EOMI ENT exam: Present: mucous membranes dry Neck exam: Present: normal inspection. Absent: tenderness, meningismus, lymphadenopathy Respiratory exam: Present: other (coarse, shallow breath sounds bilaterally) Cardiovascular Exam: Present: normal rhythm, tachycardia GI/Abdominal exam: Present: soft, tenderness (right pelvic tendeness and fullness), normal bowel sounds. Absent: distended, guarding, rebound, rigid Extremities exam: Present: full ROM, normal capillary refill, other (open wound left elbow with some green drainage). Absent: tenderness, pedal edema, joint swelling, calf tenderness Back exam: Present: normal inspection Neurological exam: Present: altered Psychiatric exam: Present: flat affect Skin exam: Present: cyanosis Course Vital Signs 11/27/20 11/27/20 11/27/20 21:20 21:45 22:06 Temperature 98.8 F Pulse Rate 154 H 143 H Pulse Rate [ 146 H Case Work Aide ] Respiratory 22 22 Rate Blood Pressure 172/92 163/121 O2 Sat by Pulse 94 L 99 Oximetry 11/27/20 11/27/20 11/28/20 22:30 23:00 00:00 Temperature 99 F Pulse Rate 137 H 140 H 147 H Pulse Rate [ Case Work Aide ] Respiratory 32 H 30 H 22 Rate Blood Pressure 197/99 181/120 182/97 O2 Sat by Pulse 100 100 100 Oximetry 11/28/20 11/28/20 01:00 01:45 Temperature Pulse Rate 133 H 126 H Pulse Rate [ Case Work Aide ] Respiratory 22 23 Rate Blood Pressure 148/89 144/93 O2 Sat by Pulse 99 100 Oximetry EKG Findings - EKG Comments: EKG Findings:: EKG demonstrates sinus tachycardia with a ventricular rate of 153. MS interval 96. QRS 88. QTC of 549. Right axis deviation. No acute ST segment elevation Medical Decision Making - Medical Decision Making Upon arrival patient is placed into trauma 1. She does demonstrate shallow respirations and tachypnea and therefore she is placed on BiPAP. She is hooked up to continuous pulse ox and cardiac monitoring which demonstrates sinus tachycardia with a rate in the 150s. IV is established the patient is given a 2 L bolus as son refuses history of heart failure. Lab studies conducted. Does demonstrate a white blood cell count 21.7. Patient is covered with Rocephin and Vanco due to her previous history of MRSA infection. Sodium 126. Creatinine 1.4. Due to the elevated creatinine the patient does go for a CT of her abdomen and pelvis without contrast. Liver studies elevated. Chest x-ray demonstrates hyperinflated lungs with COPD history which the patient get 125 of Solu-Medrol and [address] does demonstrate a sacral fracture and right pubis symphysis fracture with mild displacement. Hematoma associated with a measuring 8 x 5 cm. Hb 13. Patient re-evalauated on the BiPap and has much better facial coloration. I am able to speak with the patient and she is able to answer yes/no questions due to improvement in her mentation. I attempted to update the patient's son however he is not in the emergency department and unable to be contacted by phone. Patient will be admitted to the hospital. Spoke with the patient who agreed to this. Patient additionally given 1 mg of Ativan for which she does have improvement in her heart rate. Substance abuse history remains unknown. Spoke with Dr. Rojas who agreed to admit the patient. Patient remained in critical condition with a guarded prognosis - Lab Data Result diagrams: 11/28/20 03:37 11/28/20 03:37 Lab Results 11/27/20 11/27/20 11/27/20 Range/Units 21:50 21:50 21:50 WBC 21.7 H (3.8-10.6) k/uL RBC 4.78 (3.80-5.40) m/uL Hgb 13.7 (11.4-16.0) gm/dL Hct 44.4 (34.0-46.0) % MCV 92.9 (80.0-100.0) fL MCH 28.6 (25.0-35.0) pg MCHC 30.8 L (31.0-37.0) g/dL RDW 15.2 (11.5-15.5) % Plt Count 227 (150-450) k/uL MPV 10.0 Neutrophils % (Manual) 90 % Band Neuts % (Manual) 9 % Monocytes % (Manual) 1 % Neutrophils # (Manual) 21.40 H (1.3-7.7) k/uL Monocytes # (Manual) 0.22 (0-1.0) k/uL Nucleated RBCs 0 (0-0) /100 WBC Manual Slide Review Performed Hypochromasia Slight PT 16.6 H (9.0-12.0) sec INR 1.7 H (<1.2) APTT 21.4 L (22.0-30.0) sec D-Dimer 6.83 H (<0.60) mg/L FEU Sodium 126 L (137-145) mmol/L Potassium 4.1 (3.5-5.1) mmol/L Chloride 94 L (98-107) mmol/L Carbon Dioxide 11 L (22-30) mmol/L Anion Gap 21 mmol/L BUN 31 H (7-17) mg/dL Creatinine 1.46 H (0.52-1.04) mg/dL Est GFR (CKD-EPI)AfAm 47 (>60 ml/min/1.73 sqM) Est GFR (CKD-EPI)NonAf 41 (>60 ml/min/1.73 sqM) Glucose 164 H (74-99) mg/dL Lactic Ac Sepsis Rflx Plasma Lactic Acid [place] (0.7-2.0) mmol/L Calcium 9.7 (8.4-10.2) mg/dL Magnesium 2.3 (1.6-2.3) mg/dL Total Bilirubin 0.9 (0.2-1.3) mg/dL AST 250 H (14-36) U/L ALT 95 H (4-34) U/L Alkaline Phosphatase 311 H (38-126) U/L Creatine Kinase 153 H (30-135) U/L Troponin I (0.000-0.034) ng/mL NT-Pro-B Natriuret Pep pg/mL Total Protein 6.9 (6.3-8.2) g/dL Albumin 3.4 L (3.5-5.0) g/dL TSH 1.050 (0.465-4.680) mIU/L Urine Color Urine Appearance (Clear) Urine pH (5.0-8.0) Ur Specific [place] (1.001-1.035) Urine Protein (Negative) Urine Glucose (UA) (Negative) Urine Ketones (Negative) Urine Blood (Negative) Urine Nitrite (Negative) Urine Bilirubin (Negative) Urine Urobilinogen (<2.0) mg/dL Ur Leukocyte Esterase (Negative) Urine RBC (0-5) /hpf Urine WBC (0-5) /hpf Amorphous Sediment (None) /hpf Urine Bacteria (None) /hpf Hyaline Casts (0-2) /lpf Urine Mucus (None) /hpf Influenza Type A (PCR) (Not Detectd) Influenza Type B (PCR) (Not Detectd) RSV (PCR) (Not Detectd) SARS-CoV-2 (PCR) (Not Detectd) 11/27/20 11/27/20 11/27/20 Range/Units 21:50 21:50 22:04 WBC (3.8-10.6) k/uL RBC (3.80-5.40) m/uL Hgb (11.4-16.0) gm/dL Hct (34.0-46.0) % MCV (80.0-100.0) fL MCH (25.0-35.0) pg MCHC (31.0-37.0) g/dL RDW (11.5-15.5) % Plt Count (150-450) k/uL MPV Neutrophils % (Manual) % Band Neuts % (Manual) % Monocytes % (Manual) % Neutrophils # (Manual) (1.3-7.7) k/uL Monocytes # (Manual) (0-1.0) k/uL Nucleated RBCs (0-0) /100 WBC Manual Slide Review Hypochromasia PT (9.0-12.0) sec INR (<1.2) APTT (22.0-30.0) sec D-Dimer (<0.60) mg/L FEU Sodium (137-145) mmol/L Potassium (3.5-5.1) mmol/L Chloride (98-107) mmol/L Carbon Dioxide (22-30) mmol/L Anion Gap mmol/L BUN (7-17) mg/dL Creatinine (0.52-1.04) mg/dL Est GFR (CKD-EPI)AfAm (>60 ml/min/1.73 sqM) Est GFR (CKD-EPI)NonAf (>60 ml/min/1.73 sqM) Glucose (74-99) mg/dL Lactic Ac Sepsis Rflx Plasma Lactic Acid [place] 4.2 H* (0.7-2.0) mmol/L Calcium (8.4-10.2) mg/dL Magnesium (1.6-2.3) mg/dL Total Bilirubin (0.2-1.3) mg/dL AST (14-36) U/L ALT (4-34) U/L Alkaline Phosphatase (38-126) U/L Creatine Kinase (30-135) U/L Troponin I <0.012 (0.000-0.034) ng/mL NT-Pro-B Natriuret Pep 3580 pg/mL Total Protein (6.3-8.2) g/dL Albumin (3.5-5.0) g/dL TSH (0.465-4.680) mIU/L Urine Color Urine Appearance (Clear) Urine pH (5.0-8.0) Ur Specific [place] (1.001-1.035) Urine Protein (Negative) Urine Glucose (UA) (Negative) Urine Ketones (Negative) Urine Blood (Negative) Urine Nitrite (Negative) Urine Bilirubin (Negative) Urine Urobilinogen (<2.0) mg/dL Ur Leukocyte Esterase (Negative) Urine RBC (0-5) /hpf Urine WBC (0-5) /hpf Amorphous Sediment (None) /hpf Urine Bacteria (None) /hpf Hyaline Casts (0-2) /lpf Urine Mucus (None) /hpf Influenza Type A (PCR) (Not Detectd) Influenza Type B (PCR) (Not Detectd) RSV (PCR) (Not Detectd) SARS-CoV-2 (PCR) (Not Detectd) 11/27/20 11/27/20 11/28/20 Range/Units 22:14 22:30 00:21 WBC (3.8-10.6) k/uL RBC (3.80-5.40) m/uL Hgb (11.4-16.0) gm/dL Hct (34.0-46.0) % MCV (80.0-100.0) fL MCH (25.0-35.0) pg MCHC (31.0-37.0) g/dL RDW (11.5-15.5) % Plt Count (150-450) k/uL MPV Neutrophils % (Manual) % Band Neuts % (Manual) % Monocytes % (Manual) % Neutrophils # (Manual) (1.3-7.7) k/uL Monocytes # (Manual) (0-1.0) k/uL Nucleated RBCs (0-0) /100 WBC Manual Slide Review Hypochromasia PT (9.0-12.0) sec INR (<1.2) APTT (22.0-30.0) sec D-Dimer (<0.60) mg/L FEU Sodium (137-145) mmol/L Potassium (3.5-5.1) mmol/L Chloride (98-107) mmol/L Carbon Dioxide (22-30) mmol/L Anion Gap mmol/L BUN (7-17) mg/dL Creatinine (0.52-1.04) mg/dL Est GFR (CKD-EPI)AfAm (>60 ml/min/1.73 sqM) Est GFR (CKD-EPI)NonAf (>60 ml/min/1.73 sqM) Glucose (74-99) mg/dL Lactic Ac Sepsis Rflx Y Plasma Lactic Acid [place] (0.7-2.0) mmol/L Calcium (8.4-10.2) mg/dL Magnesium (1.6-2.3) mg/dL Total Bilirubin (0.2-1.3) mg/dL AST (14-36) U/L ALT (4-34) U/L Alkaline Phosphatase (38-126) U/L Creatine Kinase (30-135) U/L Troponin I (0.000-0.034) ng/mL NT-Pro-B Natriuret Pep pg/mL Total Protein (6.3-8.2) g/dL Albumin (3.5-5.0) g/dL TSH (0.465-4.680) mIU/L Urine Color Yellow Urine Appearance Clear (Clear) Urine pH 6.5 (5.0-8.0) Ur Specific [place] 1.010 (1.001-1.035) Urine Protein 1+ H (Negative) Urine Glucose (UA) Negative (Negative) Urine Ketones Negative (Negative) Urine Blood Small H (Negative) Urine Nitrite Negative (Negative) Urine Bilirubin Negative (Negative) Urine Urobilinogen <2.0 (<2.0) mg/dL Ur Leukocyte Esterase Negative (Negative) Urine RBC 5 (0-5) /hpf Urine WBC 3 (0-5) /hpf Amorphous Sediment Rare H (None) /hpf Urine Bacteria Rare H (None) /hpf Hyaline Casts 6 H (0-2) /lpf Urine Mucus Occasional H (None) /hpf Influenza Type A (PCR) Not Detected (Not Detectd) Influenza Type B (PCR) Not Detected (Not Detectd) RSV (PCR) Not Detected (Not Detectd) SARS-CoV-2 (PCR) Not Detected (Not Detectd) Critical Care Time Critical Care Time: Yes Critical Care Time: 32 mins Disposition Clinical Impression: Tachycardia, BiPAP (biphasic positive airway pressure) dependence, Acute respiratory failure, Transaminitis, Lactic acidosis, Leukocytosis, Hyponatremia, CHRISTINA (acute kidney injury), Failure to thrive, Pelvic fracture, CAP (community acquired pneumonia) Disposition: ADMITTED IP TO THIS [facility] Condition: Serious Is patient prescribed a controlled substance at d/c from ED?: No Decision to Admit Reason: Admit from EC Decision Date: 11/28/20 Decision Time: 00:30
[2020-11-27] MEDS ORDERED: VANCOMYCIN IV PER PHARMACY 1 EACH MISC MISCELLANE PRN (23:45)
[2020-11-27] MEDS ORDERED: VANCOMYCIN 1,000 MG in SODIUM CHLORIDE 0.9% 250 ML IVPB STA (23:47)
--- NOTE | 2020-11-28 00:07 | CT ---
EXAMINATION TYPE: CT abdomen pelvis wo con DATE OF EXAM: 11/27/2020 COMPARISON: None HISTORY: Abd Pain CT DLP: 284.2 mGycm Automated exposure control for dose reduction was used. Images obtained from the diaphragm to the floor the pelvis without contrast. Lung bases are clear of infiltrate. Heart size is normal. There is no pericardial effusion. There is no pleural effusion. Liver spleen stomach pancreas gallbladder appear intact. Bile ducts are not dila denia. There is no adrenal mass. Kidneys show normal size and contour. There are multiple low-density calcif ications involving the renal papilla bilaterally. There is no hydronephrosis. Ureters are not dilated . There is no retroperitoneal adenopathy. Bladder distends smoothly. There is comminuted fracture of the right pubic symphysis. There is irregular fluid collection that m easures 5 cm around the pubic symphysis and extending anteriorly. This is apparently extraperitoneal. This could be an acute hematoma. Age of this fracture is not clear. The proximal femurs are intact. There is transverse fracture through the body of the sacrum at the S2 level. There is no significant displacement of the fragments. There is a slight kyphotic angulation. The lumbar vertebra have normal spacing and alignment. The posterior elements are intact. The acetabula appear intact. There are santos e soft tissue calcifications in the right side obturator externa muscle. There are surgical clips on the anterior upper abdomen that could be from hernia surgery. IMPRESSION: Pelvic fractures involving the sacrum and the right pubic symphysis with mild displacement. Extraperi toneal fluid collection extending superiorly from the right pubic symphysis measures overall 8 x 5 cm and consistent with hematoma. Unusual calcification in the right obturator externus muscle. This cou ld be myositis ossificans. Renal calcifications that could relate to medullary sponge kidney and nephrocalcinosis.
[2020-11-28] MEDS ORDERED: LORazepam 2 MG/ML INJ IV STA (00:21)
[2020-11-28] MEDS ORDERED: NALOXONE 0.4 MG/ML 1 ML VIAL IV PRN (00:31)
[2020-11-28] MEDS ORDERED: HYDROmorphone 1 MG/ML 1 ML SYRINGE IVP PRN (00:31)
[2020-11-28 00:41] LABS: Amorphous Sediment,Urine Rare /hpf; Appearance,Urine Clear (Clear); Bacteria,Urine Rare /hpf; Bilirubin,Urine Negative (Negative); Blood,Urine Small (Negative); Color,Urine Yellow; Glucose,Urine (UA) Negative (Negative); Hyaline Casts,Urine 6 /lpf (0-2); Ketones,Urine Negative (Negative); Leukocyte Esterase,Urine Negative (Negative); Mucus,Urine Occasional /hpf; Nitrite,Urine Negative (Negative); PH, Urine 6.5 (5.0-8.0); Protein,Urine 1+ (Negative); RBC,Urine 5 /hpf (0-5); Urobilinogen,Urine <2.0 mg/dL (<2.0); WBC,Urine 3 /hpf (0-5)
[2020-11-28 02:39] LABS: Glucose,Whole Blood 162 mg/dL (75-99)
[2020-11-28 03:56] LABS: ABG Base Excess -16.1 mmol/L; ABG HCO3 12 mmol/L (21-25); ABG Oxygen Saturation 98.9 % (94-97); ABG PCO2 33 mmHg (35-45); ABG PO2 143 mmHg (83-108); ABG TCO2 13 mmol/L (19-24); Allen Test Performed? Yes
[2020-11-28 03:57] LABS: ABG PH 7.18 (7.35-7.45)
[2020-11-28 04:17] LABS: Albumin 2.5 g/dL (3.5-5.0); Calcium 8.4 mg/dL (8.4-10.2); Potassium 3.7 mmol/L (3.5-5.1); Total Bilirubin 0.9 mg/dL (0.2-1.3); Total Protein 5.5 g/dL (6.3-8.2)
[2020-11-28 04:30] LABS: HCT 37.5 % (34.0-46.0); HGB 11.4 gm/dL (11.4-16.0); Hypochromasia Marked; MCH 28.9 pg (25.0-35.0); MCHC 30.3 g/dL (31.0-37.0); MCV 95.4 fL (80.0-100.0); Mean Platelet Volume 9.8; Platelet Count 190 k/uL (150-450); RBC 3.93 m/uL (3.80-5.40); RDW 15.1 % (11.5-15.5); WBC 17.8 k/uL (3.8-10.6)
[2020-11-28] MEDS ORDERED: SODIUM BICARB 8.4% 50 ML SYR (1 MEQ/ML) IV STA ×2 (04:34→10:43)
[2020-11-28 04:56] LABS: Band Neutrophils % 13 %; Monocytes # (M) 0.36 k/uL (0-1.0); Neutrophils % (M) 85 %; Nucleated Red Blood Cells 0 /100 WBC (0-0); Total Cells Counted 100
--- NOTE | 2020-11-28 06:03 | P.HPIM ---
History of Present Illness H&P Date: 11/28/20 This is a 55-year-old female with an extensive PMH including L elbow wound w/ MRSA who was brought to the emergency room by her son due to generalized weakness. The patient was obtunded during the examination and thereby history obtained from the chart. The patient had reportedly been recently diagnosed with a pelvic fracture at an outside facility and was told that she may be able to ambulate with it and that she did not require further intervention. She however had extensive pain at the site as per her family and had been laying in bed for 2 weeks. The family had reported that she had not gotten up to move and had not been eating or drinking much during this time. The patient underwent an extensive evaluation in the emergency room with an abdomen/pelvis CT which revealed a pelvic fracture involving the sacrum and the right pubic symphysis with mild displacement along with extraperitoneal fluid collection extending superiorly from the right pubic symphysis 8 cm x 5 cm hematoma. Chest x-ray was unremarkable. EKG had revealed sinus a cardiac with prolonged QTC at 153 bpm. Laboratory evaluation was remarkable for WBC count of 21.7, hemoglobin 13.7, platelets 227, INR 1.7, d-dimer 6.83, sodium 126, chloride 94, CO2 11, BUN 31, creatinine 1.46, lactic acid 4.2, troponin less than 0.012, AST 250, ALT 95, alk phos 311, and CK 153. Review of Systems Pertinent positives and negatives as discussed in HPI, a complete review of systems was performed and all other systems are negative. Past Medical History Past Medical History: Asthma, Heart Failure, COPD, Hyperlipidemia, Hypertension, Renal Disease Additional Past Medical History / Comment(s): Bronchitis, gestational diabetes, braydrcardia, broken pelvis History of Any Multi-Drug Resistant Organisms: MRSA Date of last positivie culture/infection: February 2019 MDRO Source:: Left elbow Past Surgical History: Appendectomy, Section, Hernia Repair, Hysterectomy, Tonsillectomy Additional Past Surgical History / Comment(s): PACEMAKER (SECOND BATTER REPLACED). surgery May 06 2019 for infection in left elbow, PICC line previously Past Anesthesia/Blood Transfusion Reactions: Previous Problems w/ Anesthesia Additional Past Anesthesia/Blood Transfusion Reaction / Comment(s): Early waking during procedure Type of Cardiac Device: Permanent Pacemaker Device Placement Date:: 2004 Past Psychological History: Depression Smoking Status: Never smoker Past Alcohol Use History: None Reported Past Drug Use History: None Reported - Past Family History Mother Family Medical History: CVA/TIA, Diabetes Mellitus, Hyperlipidemia, Hypertension, Myocardial Infarction ([place]) Father Family Medical History: Coronary Artery Disease (CAD), Diabetes Mellitus Additional Family Medical History / Comment(s): Cardiac stents Medications and Allergies Home Medications Medication Instructions Recorded Confirmed Type Albuterol Inhaler (Mhu) [Ventolin 1 - 2 puff INHALATION RT-Q6H PRN 08/15/17 06/04/19 History Hfa Inhaler (Mhu)] Ezetimibe [Zetia] 10 mg PO DAILY 08/15/17 06/04/19 History Ipratropium/Albuterol Sulfate 2 puff INHALATION RT-Q6H PRN 08/15/17 06/04/19 History [Combivent Respimat Inhaler] Nitroglycerin Sl Tabs [Nitrostat] 0.4 mg SUBLINGUAL Q5M PRN 08/15/17 06/04/19 History Pravastatin Sodium [Pravachol] 40 mg PO DAILY 08/15/17 06/04/19 History Gabapentin [Neurontin] 300 mg PO TID 06/19/18 06/04/19 History predniSONE 5 mg PO DAILY 06/19/18 06/04/19 History rOPINIRole HCL [Requip] 1 mg PO HS 06/19/18 06/04/19 History Furosemide [Lasix] 40 mg PO DAILY 06/04/19 06/04/19 History PARoxetine [Paxil] 20 mg PO DAILY 06/04/19 06/04/19 History Potassium Chloride ER [K-Dur 10] 10 meq PO DAILY 06/04/19 06/04/19 History Zolpidem [Ambien] 10 mg PO HS 06/04/19 06/04/19 History carvediloL [Coreg] 3.125 mg PO BID 06/04/19 06/04/19 History Ketorolac [Toradol] 10 mg PO Q6HR PRN #20 tab 06/09/19 Rx Nicotine 21Mg/24Hr Patch [Habitrol] 1 each TRANSDERM DAILY #30 patch 06/09/19 Rx Sulfamethox-Tmp 800-160Mg [Bactrim 1 tab PO Q12HR #14 tab 06/09/19 Rx DS 800-160 mg] Allergies Allergy/AdvReac Type Severity Reaction Status Date / Time doxycycline [From Vibramycin] Allergy Mild Swelling Verified 06/04/19 07:41 TRABUTALINE Allergy Anaphylaxis Uncoded 06/04/19 07:41 Physical Exam Vitals: Vital Signs Temp Pulse Pulse Resp BP Pulse Ox 11/28/20 02:10 99.4 F 11/28/20 01:45 126 H 23 144/93 100 11/28/20 01:00 133 H 22 148/89 99 11/28/20 00:00 99 F 147 H 22 182/97 100 11/27/20 23:00 140 H 30 H 181/120 100 11/27/20 22:30 137 H 32 H 197/99 100 11/27/20 22:06 146 H 11/27/20 21:45 143 H 22 163/121 99 11/27/20 21:20 98.8 F 154 H 22 172/92 94 L Intake and Output 11/27/20 11/27/20 11/28/20 14:59 22:59 06:59 Other: Weight 45.359 kg 38.9 kg General: Chronically ill-appearing female, no distress, appears older than stated age, cachectic Derm: L elbow ulcer with purulent drainage no unusual rashes/lesions no unusual ecchymoses, warm, dry Head: atraumatic, normocephalic, symmetric Eyes: EOMI, no lid lag, anicteric sclera, pupils equal round reactive to light ENT: Nose and ears atraumatic, no pharyngeal erythema Neck: No thyromegaly, no cervical lymphadenopathy, trachea midline, supple Mouth: no lip lesion, mucus membranes dry Cardiovascular: S1S2 reg, tachycardic, no murmur, positive posterior tibial pulse bilateral, no edema, capillary refill less than 2 seconds Lungs: Bilateral wheezing, no rhonchi, no rales , no accessory muscle use Abdominal: soft, nontender to palpation, no guarding, no appreciable organomegaly Ext: no gross muscle atrophy, no contractures, strength 3 out of 5 bilaterally Neuro: No focal deficits noted Psych: Following basic commands, oriented only to self Results CBC & Chem 7: 11/28/20 03:37 11/28/20 03:37 Labs: Abnormal Lab Results - Last 24 Hours (Table) 11/27/20 11/27/20 11/27/20 Range/Units 21:50 21:50 21:50 WBC 21.7 H (3.8-10.6) k/uL MCHC 30.8 L (31.0-37.0) g/dL Neutrophils # (Manual) 21.40 H (1.3-7.7) k/uL PT 16.6 H (9.0-12.0) sec INR 1.7 H (<1.2) APTT 21.4 L (22.0-30.0) sec D-Dimer 6.83 H (<0.60) mg/L FEU ABG pH (7.35-7.45) ABG pCO2 (35-45) mmHg ABG pO2 (83-108) mmHg ABG HCO3 (21-25) mmol/L ABG Total CO2 (19-24) mmol/L ABG O2 Saturation (94-97) % Sodium 126 L (137-145) mmol/L Chloride 94 L (98-107) mmol/L Carbon Dioxide 11 L (22-30) mmol/L BUN 31 H (7-17) mg/dL Creatinine 1.46 H (0.52-1.04) mg/dL Glucose 164 H (74-99) mg/dL POC Glucose (mg/dL) (75-99) mg/dL Plasma Lactic Acid Milton (0.7-2.0) mmol/L AST 250 H (14-36) U/L ALT 95 H (4-34) U/L Alkaline Phosphatase 311 H (38-126) U/L Creatine Kinase 153 H (30-135) U/L Troponin I (0.000-0.034) ng/mL Total Protein (6.3-8.2) g/dL Albumin 3.4 L (3.5-5.0) g/dL Urine Protein (Negative) Urine Blood (Negative) Amorphous Sediment (None) /hpf Urine Bacteria (None) /hpf Hyaline Casts (0-2) /lpf Urine Mucus (None) /hpf 11/27/20 11/28/20 11/28/20 Range/Units 21:50 00:21 00:45 WBC (3.8-10.6) k/uL MCHC (31.0-37.0) g/dL Neutrophils # (Manual) (1.3-7.7) k/uL PT (9.0-12.0) sec INR (<1.2) APTT (22.0-30.0) sec D-Dimer (<0.60) mg/L FEU ABG pH (7.35-7.45) ABG pCO2 (35-45) mmHg ABG pO2 (83-108) mmHg ABG HCO3 (21-25) mmol/L ABG Total CO2 (19-24) mmol/L ABG O2 Saturation (94-97) % Sodium (137-145) mmol/L Chloride (98-107) mmol/L Carbon Dioxide (22-30) mmol/L BUN (7-17) mg/dL Creatinine (0.52-1.04) mg/dL Glucose (74-99) mg/dL POC Glucose (mg/dL) (75-99) mg/dL Plasma Lactic Acid Milton 4.2 H* 2.3 H* (0.7-2.0) mmol/L AST (14-36) U/L ALT (4-34) U/L Alkaline Phosphatase (38-126) U/L Creatine Kinase (30-135) U/L Troponin I (0.000-0.034) ng/mL Total Protein (6.3-8.2) g/dL Albumin (3.5-5.0) g/dL Urine Protein 1+ H (Negative) Urine Blood Small H (Negative) Amorphous Sediment Rare H (None) /hpf Urine Bacteria Rare H (None) /hpf Hyaline Casts 6 H (0-2) /lpf Urine Mucus Occasional H (None) /hpf 11/28/20 11/28/20 11/28/20 Range/Units 00:45 02:37 03:27 WBC (3.8-10.6) k/uL MCHC (31.0-37.0) g/dL Neutrophils # (Manual) (1.3-7.7) k/uL PT (9.0-12.0) sec INR (<1.2) APTT (22.0-30.0) sec D-Dimer (<0.60) mg/L FEU ABG pH (7.35-7.45) ABG pCO2 (35-45) mmHg ABG pO2 (83-108) mmHg ABG HCO3 (21-25) mmol/L ABG Total CO2 (19-24) mmol/L ABG O2 Saturation (94-97) % Sodium (137-145) mmol/L Chloride (98-107) mmol/L Carbon Dioxide (22-30) mmol/L BUN (7-17) mg/dL Creatinine (0.52-1.04) mg/dL Glucose (74-99) mg/dL POC Glucose (mg/dL) 162 H (75-99) mg/dL Plasma Lactic Acid Milton (0.7-2.0) mmol/L AST (14-36) U/L ALT (4-34) U/L Alkaline Phosphatase (38-126) U/L Creatine Kinase (30-135) U/L Troponin I 0.073 H* 0.255 H* (0.000-0.034) ng/mL Total Protein (6.3-8.2) g/dL Albumin (3.5-5.0) g/dL Urine Protein (Negative) Urine Blood (Negative) Amorphous Sediment (None) /hpf Urine Bacteria (None) /hpf Hyaline Casts (0-2) /lpf Urine Mucus (None) /hpf 11/28/20 11/28/20 11/28/20 Range/Units 03:37 03:37 03:51 WBC 17.8 H (3.8-10.6) k/uL MCHC 30.3 L (31.0-37.0) g/dL Neutrophils # (Manual) 17.40 H (1.3-7.7) k/uL PT (9.0-12.0) sec INR (<1.2) APTT (22.0-30.0) sec D-Dimer (<0.60) mg/L FEU ABG pH 7.18 L* (7.35-7.45) ABG pCO2 33 L (35-45) mmHg ABG pO2 143 H (83-108) mmHg ABG HCO3 12 L (21-25) mmol/L ABG Total CO2 13 L (19-24) mmol/L ABG O2 Saturation 98.9 H (94-97) % Sodium 131 L (137-145) mmol/L Chloride (98-107) mmol/L Carbon Dioxide 11 L (22-30) mmol/L BUN 28 H (7-17) mg/dL Creatinine (0.52-1.04) mg/dL Glucose 151 H (74-99) mg/dL POC Glucose (mg/dL) (75-99) mg/dL Plasma Lactic Acid Milton (0.7-2.0) mmol/L AST 413 H (14-36) U/L ALT 134 H (4-34) U/L Alkaline Phosphatase 260 H (38-126) U/L Creatine Kinase (30-135) U/L Troponin I (0.000-0.034) ng/mL Total Protein 5.5 L (6.3-8.2) g/dL Albumin 2.5 L (3.5-5.0) g/dL Urine Protein (Negative) Urine Blood (Negative) Amorphous Sediment (None) /hpf Urine Bacteria (None) /hpf Hyaline Casts (0-2) /lpf Urine Mucus (None) /hpf Assessment and Plan Plan: Pelvic fracture and hematoma, 8 cm x 5 cm -Consult general and orthopedic surgery -Strict bedrest for now Sepsis secondary to Left elbow wound with purulent drainage -History of MRSA -C/w Vancomycin -IVFs -Wound culture Elevated d-dimer -Obtain CT chest angiogram -Hold off on anticoagulation due to pelvic hematoma Troponin elevation -Cardiac monitoring -Cardiac consult -Trend for now -Likely secondary to ongoing sepsis Metabolic acidosis, likely secondary to acute renal failure and lactic acidosis in setting of sepsis -Monitor BMP DVT prophylaxis -IPCDs Discussed with: RN Anticipated discharge date: 3-[address]: [facility] A total of 45 minutes was spent on the care of this complex patient more than 50% of the time was spent in counseling and care coordination.
--- NOTE | 2020-11-28 07:17 | CT ---
EXAM: CT Head Without Intravenous Contrast CLINICAL HISTORY: Reason: r/o stroke TECHNIQUE: Axial computed tomography images of the head/brain without intravenous contrast. CTDI is 49.27 mGy and DLP is 1098.40 mGy-cm. This CT exam was performed using one or more of the following dose reduction techniques: automated exposure control, adjustment of the mA and/or kV according to patient size, and/or use of iterative reconstruction technique. COMPARISON: No relevant prior studies available. FINDINGS: Brain: No acute findings. No acute intracranial hemorrhage, edema or abnormal mass-effect. Ventricles: Unremarkable. No ventriculomegaly. Bones/joints: Unremarkable. No acute fracture. Soft tissues: Unremarkable. Sinuses: Unremarkable as visualized. No acute sinusitis. Mastoid air cells: Unremarkable as visualized. No mastoid effusion. IMPRESSION: No acute intracranial findings.
--- NOTE | 2020-11-28 07:22 | CT ---
EXAM: CT Angiography Chest With Intravenous Contrast CLINICAL HISTORY: Reason: r/o PE TECHNIQUE: Axial computed tomographic angiography images of the chest with intravenous contrast. CTDI is 9.57 mGy and DLP is 216.7 mGy-cm. This CT exam was performed using one or more of the following dose reduction techniques: automated exposure control, adjustment of the mA and/or kV according to patient size, and/or use of iterative reconstruction technique. MIP reconstructed images were created and reviewed. COMPARISON: No relevant prior studies available. FINDINGS: Pulmonary arteries: Unremarkable. No pulmonary embolism. Aorta: No acute findings. No thoracic aortic aneurysm. Lungs: Patchy bilateral areas of infiltration consistent with pneumonia. No mass. Pleural space: Unremarkable. No significant effusion. No pneumothorax. Heart: Unremarkable. No cardiomegaly. No significant pericardial effusion. No evidence of RV dysfunction. Bones/joints: No acute fracture. No dislocation. Soft tissues: Unremarkable. Lymph nodes: Unremarkable. No enlarged lymph nodes. IMPRESSION: Bilateral pneumonia. No evidence of pulmonary emboli.
--- NOTE | 2020-11-28 08:39 | P.CRDCN ---
History of Present Illness Consult date: 11/28/20 Chief complaint: Change in mental status History of present illness: This is a pleasant 55-year-old female patient with requested to see in the i ntensive care unit for further evaluation and management of abnormal cardiac enzymes and mildly elevated troponin. The patient is obtunded somewhat and she is a poor historian and the history was taken from the chart as well as from the nurse taking care of the patient. The patient was diagnosed recently was a pelvic fracture and she was treated medically. Apparently she was brought to the emergency department by her son. We'll to be understood that the patient was not eating and drinking well for the last several days. No indication that the patient was experiencing any symptoms of chest pain or chest discomfort or shortness of breath. She was found to be weak and she was on the floor when she was brought to the hospital. In the emergency department the workup revealed renal failure and subsequently the patient was started on IV fluid with improvement in her creatinine. Also she was tachycardic and according to the ICU nurse the patient was in SVT but there is no documentation of SVT in the chart. Currently she is tachycardic with a heart rate around 130 bpm and I am in process of getting an EKG on her. No prior cardiac arrhythmia history on the patient. She is hemodynamically stable. The EKG when she arrived showed only sinus tachycardia. The troponin is a slightly elevated which could be related to the renal failure as well as tachycardia. No prior history of coronary artery disease or congestive heart failure. She is in mild respiratory distress when she was seen in this morning and her ABG was reviewed. I'm going to start the patient on small dose of beta gino with metoprolol and we are in process of getting an echocardiogram on her. The computed tomography scan of the brain did not show any acute abnormalities. The computed tomography scan of the chest did not show any PE. Past Medical History Past Medical History: Asthma, Heart Failure, COPD, Hyperlipidemia, Hypertension, Renal Disease Additional Past Medical History / Comment(s): Bronchitis, gestational diabetes, braydrcardia, broken pelvis History of Any Multi-Drug Resistant Organisms: MRSA Date of last positivie culture/infection: February 2019 MDRO Source:: Left elbow Past Surgical History: Appendectomy, Section, Hernia Repair, Hysterectomy, Tonsillectomy Additional Past Surgical History / Comment(s): PACEMAKER (SECOND BATTER REPLACED). surgery May 06 2019 for infection in left elbow, PICC line previously Past Anesthesia/Blood Transfusion Reactions: Previous Problems w/ Anesthesia Additional Past Anesthesia/Blood Transfusion Reaction / Comment(s): Early waking during procedure Type of Cardiac Device: Permanent Pacemaker Device Placement Date:: 2004 Past Psychological History: Depression Smoking Status: Never smoker Past Alcohol Use History: None Reported Past Drug Use History: None Reported - Past Family History Mother Family Medical History: CVA/TIA, Diabetes Mellitus, Hyperlipidemia, Hypertension, Myocardial Infarction ([place]) Father Family Medical History: Coronary Artery Disease (CAD), Diabetes Mellitus Additional Family Medical History / Comment(s): Cardiac stents Medications and Allergies Home Medications Medication Instructions Recorded Confirmed Type Albuterol Inhaler (Mhu) [Ventolin 1 - 2 puff INHALATION RT-Q6H PRN 08/15/17 06/04/19 History Hfa Inhaler (Mhu)] Ezetimibe [Zetia] 10 mg PO DAILY 08/15/17 06/04/19 History Ipratropium/Albuterol Sulfate 2 puff INHALATION RT-Q6H PRN 08/15/17 06/04/19 History [Combivent Respimat Inhaler] Nitroglycerin Sl Tabs [Nitrostat] 0.4 mg SUBLINGUAL Q5M PRN 08/15/17 06/04/19 History Pravastatin Sodium [Pravachol] 40 mg PO DAILY 08/15/17 06/04/19 History Gabapentin [Neurontin] 300 mg PO TID 06/19/18 06/04/19 History predniSONE 5 mg PO DAILY 06/19/18 06/04/19 History rOPINIRole HCL [Requip] 1 mg PO HS 06/19/18 06/04/19 History Furosemide [Lasix] 40 mg PO DAILY 06/04/19 06/04/19 History PARoxetine [Paxil] 20 mg PO DAILY 06/04/19 06/04/19 History Potassium Chloride ER [K-Dur 10] 10 meq PO DAILY 06/04/19 06/04/19 History Zolpidem [Ambien] 10 mg PO HS 06/04/19 06/04/19 History carvediloL [Coreg] 3.125 mg PO BID 06/04/19 06/04/19 History Ketorolac [Toradol] 10 mg PO Q6HR PRN #20 tab 06/09/19 Rx Nicotine 21Mg/24Hr Patch [Habitrol] 1 each TRANSDERM DAILY #30 patch 06/09/19 Rx Sulfamethox-Tmp 800-160Mg [Bactrim 1 tab PO Q12HR #14 tab 06/09/19 Rx DS 800-160 mg] Allergies Allergy/AdvReac Type Severity Reaction Status Date / Time doxycycline [From Vibramycin] Allergy Mild Swelling Verified 06/04/19 07:41 TRABUTALINE Allergy Anaphylaxis Uncoded 06/04/19 07:41 Physical Exam Vitals: Vital Signs Temp Pulse Pulse Resp BP BP Pulse Ox 11/28/20 04:00 97.9 F 130 H 24 140/96 11/28/20 02:10 99.4 F 11/28/20 01:45 126 H 23 144/93 100 11/28/20 01:00 133 H 22 148/89 99 11/28/20 00:00 99 F 147 H 22 182/97 100 11/27/20 23:00 140 H 30 H 181/120 100 11/27/20 22:30 137 H 32 H 197/99 100 11/27/20 22:06 146 H 11/27/20 21:45 143 H 22 163/121 99 11/27/20 21:20 98.8 F 154 H 22 172/92 94 L Intake and Output 11/27/20 11/28/20 11/28/20 22:59 06:59 14:59 Intake Total 625 Output Total 645 Balance -20 Intake: IV 625 0.9 @ 75ml/hr 375 Vancomycin 1,000 mg In 250 Sodium Chloride 0.9% 250 ml @ 125 mls/hr IVPB ONCE STA Rx#:[id number] Output: Urine 645 Other: Weight 45.359 kg 38.9 kg - Constitutional General appearance: no acute distress - Respiratory Respiratory: bilateral: diminished - Cardiovascular Rhythm: regular Heart sounds: normal: S1, S2 Abnormal Heart Sounds: systolic murmur Results 11/28/20 03:37 11/28/20 03:37 Cardiac Enzymes 11/27/20 11/27/20 11/28/20 Range/Units 21:50 21:50 00:45 AST 250 H (14-36) U/L Troponin I <0.012 0.073 H* (0.000-0.034) ng/mL 11/28/20 11/28/20 Range/Units 03:27 03:37 AST 413 H (14-36) U/L Troponin I 0.255 H* (0.000-0.034) ng/mL Coagulation 11/27/20 Range/Units 21:50 PT 16.6 H (9.0-12.0) sec APTT 21.4 L (22.0-30.0) sec CBC 11/27/20 11/28/20 Range/Units 21:50 03:37 WBC 21.7 H 17.8 H (3.8-10.6) k/uL RBC 4.78 3.93 (3.80-5.40) m/uL Hgb 13.7 11.4 (11.4-16.0) gm/dL Hct 44.4 37.5 (34.0-46.0) % Plt Count 227 190 (150-450) k/uL Comprehensive Metabolic Panel 11/27/20 11/28/20 Range/Units 21:50 03:37 Sodium 126 L 131 L (137-145) mmol/L Potassium 4.1 3.7 (3.5-5.1) mmol/L Chloride 94 L 107 (98-107) mmol/L Carbon Dioxide 11 L 11 L (22-30) mmol/L BUN 31 H 28 H (7-17) mg/dL Creatinine 1.46 H 0.98 (0.52-1.04) mg/dL Glucose 164 H 151 H (74-99) mg/dL Calcium 9.7 8.4 (8.4-10.2) mg/dL AST 250 H 413 H (14-36) U/L ALT 95 H 134 H (4-34) U/L Alkaline Phosphatase 311 H 260 H (38-126) U/L Total Protein 6.9 5.5 L (6.3-8.2) g/dL Albumin 3.4 L 2.5 L (3.5-5.0) g/dL Current Medications Generic Name Dose Route Start Last Admin Trade Name Freq PRN Reason Stop Dose Admin Hydromorphone HCl 1 mg 11/28/20 00:31 Hydromorphone 1 Mg/Ml 1 Ml Syringe IVP Q3HR PRN Severe Pain Vancomycin HCl 750 mg/ Sodium 250 mls @ 125 mls/hr 11/29/20 06:00 Chloride IVPB Q24H OSCAR Metoprolol Tartrate 12.5 mg 11/28/20 09:00 Metoprolol Tartrate 12.5 Mg Tab PO BID OSCAR Naloxone HCl 0.2 mg 11/28/20 00:31 Naloxone 0.4 Mg/Ml 1 Ml Vial IV Q2M PRN Opioid Reversal Intake and Output 11/27/20 11/28/20 11/28/20 22:59 06:59 14:59 Intake Total 625 Output Total 645 Balance -20 Intake: IV 625 0.9 @ 75ml/hr 375 Vancomycin 1,000 mg In 250 Sodium Chloride 0.9% 250 ml @ 125 mls/hr IVPB ONCE STA Rx#:[id number] Output: Urine 645 Other: Weight 45.359 kg 38.9 kg 11/28/20 03:37 11/28/20 03:37 Assessment and Plan Assessment: Assessment #1 change in mental status #2 mild acute respiratory distress #3 tachycardia likely to be sinus. An EKG is in process to be done #4 acute renal failure which has resolved #5 dehydration Plan #1 continue IV fluid #2 start the patient on metoprolol #3 follow-up with the serial cardiac enzymes #4 follow-up with the echocardiogram
--- NOTE | 2020-11-28 08:43 | US ---
EXAMINATION TYPE: US venous doppler duplex LE BI DATE OF EXAM: 11/28/2020 7:37 AM COMPARISON: NONE CLINICAL HISTORY: 55-year-old female elevated d-dimer. ICU patient. Poor historian. No swelling or redness. SIDE PERFORMED: Bilateral TECHNIQUE: The lower extremity deep venous system is examined utilizing real time linear array sonog emelia with graded compression, doppler sonography and color-flow sonography. FINDINGS: VESSELS IMAGED: Common Femoral Vein Deep Femoral Vein Greater Saphenous Vein * Femoral Vein Popliteal Vein Small Saphenous Vein * Proximal Calf Veins (* superficial vessels) [employer] NOTES: Right Leg: Appears negative for DVT at time of scan. Wall thickening seen and rouleaux flow. Left Leg: Appears negative for DVT at time of scan. Wall thickening seen and rouleaux flow. The wall thickening indicated by the crab butcher is not as well appreciated on the provided images. IMPRESSION: Rouleaux flow (some slow flow) indicated by the crab butcher. The wall thickening also commented on by the crab butcher during real-time scanning is not well demonstrated on the provided images. No eviden ce for DVT within the bilateral lower extremities imaged from the groin to the upper calves.
[2020-11-28] MEDS ORDERED: METOPROLOL TARTRATE 12.5 MG TAB PO SCH (09:00)
[2020-11-28] MEDS ORDERED: DEXTROSE 5% IN WATER 1,000 ML with SODIUM BICARB (1 MEQ/ML) 150 ML IV SCH (09:15)
[2020-11-28] MEDS ORDERED: PROPOFOL 10 MG/ML 20 ML VIAL IV ONE (09:20)
--- NOTE | 2020-11-28 09:32 | P.CNOR ---
History of Present Illness - HPI Consult date: 11/28/20 Consult reason: fracture History of present illness: 5-year-old female presents emergency department after failure to thrive and inability to ambulate. Per chart review and per family as patient is fairly obtunded at this time and can really only shake her head yes and no there appears to have been a fracture of her pelvis at some point which she was evaluated at an outside facility who stated that she did not need surgery for this and center on her way. She has since then per family then just laying around in bed and not getting up due to either pain or inability to perform ambulation or do her duties. Brought her in and he did not stick around to give a further history. When asking the patient questions she is able to answer simple yes and no questions she states yesterday pain in her pelvis denies bowel or bladder issues denies numbness in her peroneal her genital region states weakness in her lower extremities is able to move them with minimal pain however unable to stand or walk at this time. We are unable to assess at this time her previous ambulatory or functional status. She denies fevers or chills she denies chest pain. She does state shortness of breath. Currently on BiPAP. Review of Systems 14 points review of systems completed and as stated in HPI, all other systems reviewed are negative. Past Medical History Past Medical History: Asthma, Heart Failure, COPD, Hyperlipidemia, Hypertension, Renal Disease Additional Past Medical History / Comment(s): Bronchitis, gestational diabetes, braydrcardia, broken pelvis History of Any Multi-Drug Resistant Organisms: MRSA Year Discovered:: February 2019 MDRO Source:: Left elbow Past Surgical History: Appendectomy, Section, Hernia Repair, Hysterectomy, Tonsillectomy Additional Past Surgical History / Comment(s): PACEMAKER (SECOND BATTER REPLACED). surgery May 06 2019 for infection in left elbow, PICC line previously Past Anesthesia/Blood Transfusion Reactions: Previous Problems w/ Anesthesia Additional Past Anesthesia/Blood Transfusion Reaction / Comm: Early waking during procedure Type of Cardiac Device: Permanent Pacemaker Device Placement Date:: 2004 Past Psychological History: Depression Smoking Status: Never smoker Past Alcohol Use History: None Reported Past Drug Use History: None Reported - Past Family History Mother Family Medical History: CVA/TIA, Diabetes Mellitus, Hyperlipidemia, Hypertension , Myocardial Infarction (ND) Father Family Medical History: Coronary Artery Disease (CAD), Diabetes Mellitus Additional Family Medical History / Comment(s): Cardiac stents Medications and Allergies Home Medications Medication Instructions Recorded Confirmed Type Albuterol Inhaler (Mhu) [Ventolin 1 - 2 puff INHALATION RT-Q6H PRN 08/15/17 06/04/19 History Hfa Inhaler (Mhu)] Ezetimibe [Zetia] 10 mg PO DAILY 08/15/17 06/04/19 History Ipratropium/Albuterol Sulfate 2 puff INHALATION RT-Q6H PRN 08/15/17 06/04/19 History [Combivent Respimat Inhaler] Nitroglycerin Sl Tabs [Nitrostat] 0.4 mg SUBLINGUAL Q5M PRN 08/15/17 06/04/19 History Pravastatin Sodium [Pravachol] 40 mg PO DAILY 08/15/17 06/04/19 History Gabapentin [Neurontin] 300 mg PO TID 06/19/18 06/04/19 History predniSONE 5 mg PO DAILY 06/19/18 06/04/19 History rOPINIRole HCL [Requip] 1 mg PO HS 06/19/18 06/04/19 History Furosemide [Lasix] 40 mg PO DAILY 06/04/19 06/04/19 History PARoxetine [Paxil] 20 mg PO DAILY 06/04/19 06/04/19 History Potassium Chloride ER [K-Dur 10] 10 meq PO DAILY 06/04/19 06/04/19 History Zolpidem [Ambien] 10 mg PO HS 06/04/19 06/04/19 History carvediloL [Coreg] 3.125 mg PO BID 06/04/19 06/04/19 History Ketorolac [Toradol] 10 mg PO Q6HR PRN #20 tab 06/09/19 Rx Nicotine 21Mg/24Hr Patch [Habitrol] 1 each TRANSDERM DAILY #30 patch 06/09/19 Rx Sulfamethox-Tmp 800-160Mg [Bactrim 1 tab PO Q12HR #14 tab 06/09/19 Rx DS 800-160 mg] Allergies Allergy/AdvReac Type Severity Reaction Status Date / Time doxycycline [From Vibramycin] Allergy Mild Swelling Verified 06/04/19 07:41 TRABUTALINE Allergy Anaphylaxis Uncoded 06/04/19 07:41 Physical Examination Osteopathic Statement: *. No significant issues noted on an osteopathic structural exam other than those noted in the History and Physical/Consult. PHYSICAL EXAMINATION: Vitals: Stable at this time General: Awake, alert, appropriate for age, in no acute distress. HEENT: No unusual neck masses around region of lateral neck triangle, thyroid, supraclavicular groove. Extremities: Skin warm and dry without no acute lesions, coloration, temperature, skin intact, no tenderness or erythema. Integument: Hairy patches: Absent Dorsal skin dimples: Absent Cafe au lait spots: Absent Surgical incisions: None Palpation: Please see Pain drawing on Intake sheet for further detail. (Tenderness = T, Nontender = NT, Swelling = S, Ecchymosis = E) Findings on Midline and paraspinal palpation and percussion: Cervical: NT Thoracic: NT Lumbar: NT Sacral: Nontender to palpation at this time and her sacral body region. She is only able to shake head yes or no so difficult to determine Her pelvis is stable to pelvic rock however she does wince when pressed on. Special findings: None VASCULAR STATUS : Wrist Pulses: 2/4 bilateral radial and ulnar Pedal Pulses: 2/4 bilateral DP and PT Color: Normal Edema: None NEUROLOGIC EXAMINATION: Mental Status: Awake and alert, able to shake head yes and no for answers to questions Cranial Nerves: I: Olfactory not tested. II: Visual acuity normal, no visual field deficit noted with confrontation. III,IV: Normal pupillary reflexes & intact extraocular movements without nystagmus. V,: Intact symmetrical facial sensation. VII: Intact symmetrical facial motor movement VIII: Hearing intact. IX,X: Intact gag, swallow, & normal voice. XI: Sternocleidomastoid, trapezius function intact. XII: Tongue midline with normal movements. Special Tests: L'hermitte's Sign: Absent Spurling'Sign: Absent Bilateral Motor Exam (0-5/5, N/T) STRENGTH UPPER EXTREMITY Shoulder Abd (Not part of AYLIN Motor score): RIGHT 4 LEFT 4 Elbow Flexors: RIGHT 4 LEFT 4 Elbow Extensor: RIGHT 4 LEFT 4 Wrrist Dorsiflexors: RIGHT 4 LEFT 4 Finger Abductor: RIGHT 4 LEFT 4 Wedding Day Coordinator: RIGHT 4 LEFT 4 LOWER EXTREMITY Hip Flexor (Not part of AYLIN Motor Score): RIGHT 4- LEFT 4- Knee Flexor: RIGHT 4- LEFT 4- Knee Extensor: RIGHT 4- LEFT 4- Ankle Dorsiflexion: RIGHT 4- LEFT 4- Ankle Plantarflexion: RIGHT 4- LEFT 4- EHL: RIGHT 4- LEFT 4- FHL: RIGHT 4- LEFT 4-patient has generalized weakness in her upper and lower extremities. There are no focal deficits however. It still difficult to determine if this is due to her laying around for 2 weeks and not doing anything or if it is related to any neural compression. She has no long track signs that are noted. Rectal exam chaperoned showed good rectal tone. Patient not quite with it enough for volitional control however I suspect it is intact due to good rectal tone and good perineal and perianal sensation REFLEXES Biecp: RIGHT 2 LEFT 2 Tricep: RIGHT 2 LEFT 2 Brachioradialis: RIGHT 2 LEFT 2 Patellar: RIGHT 2 LEFT 2 Achilles: RIGHT 2 LEFT 2 Pathological Reflexes Pinedo's: RIGHT Absent LEFT Absent Babinski: RIGHT Absent LEFT Absent Clonus: RIGHT None LEFT None SENSORY Joint Position: Intact bilaterally Vibration Intact bilaterally Pain and LT sense Intact C5-T1 and L2-S1 Dermatomal deficit None Gait and Functional Evaluation: Hand and finger dexterity intact bilaterally. Disdiadochokinesis examination negative bilaterally. Results CT of the lumbar spine abdomen and pelvis is reviewed. The patient has an APC type I injury to her pelvis with a pubic rami fracture on the right anteriorly and superiorly at the pubic symphysis. There is no inferior rami fracture however she does have bilateral sacral alar fractures which are currently nondisplaced however they involve most of the alar region. SI joints appear stable. She however has sagittal imbalance of her S1-S2 region and there is a fracture line that extends posteriorly into the S1 posterior elements. This causes S1-S2 kyphosis and is likely unstable. It does not appear acute however appear slightly subacute due to the sclerosis in this area. However there is draping of the neural elements over in this area as well. Other lumbar fractures noted no listhesis noted or instability. No lesions noted. She does have an extraperitoneal fluid collection which is likely secondary to a hematoma in this area. CT angiogram the chest as well as CT of the brain reports were reviewed. This demonstrates bilateral pneumonia no pulmonary emboli brain does not demonstrate any acute intracranial process at this time. Bilateral lower shoulder ultrasound does not reveal any DVT within the bilateral lower extremities - Labs Labs: Abnormal Lab Results - Last 24 Hours (Table) 11/27/20 11/27/20 11/27/20 Range/Units 21:50 21:50 21:50 WBC 21.7 H (3.8-10.6) k/uL MCHC 30.8 L (31.0-37.0) g/dL Neutrophils # (Manual) 21.40 H (1.3-7.7) k/uL PT 16.6 H (9.0-12.0) sec INR 1.7 H (<1.2) APTT 21.4 L (22.0-30.0) sec D-Dimer 6.83 H (<0.60) mg/L FEU ABG pH (7.35-7.45) ABG pCO2 (35-45) mmHg ABG pO2 (83-108) mmHg ABG HCO3 (21-25) mmol/L ABG Total CO2 (19-24) mmol/L ABG O2 Saturation (94-97) % Sodium 126 L (137-145) mmol/L Chloride 94 L (98-107) mmol/L Carbon Dioxide 11 L (22-30) mmol/L BUN 31 H (7-17) mg/dL Creatinine 1.46 H (0.52-1.04) mg/dL Glucose 164 H (74-99) mg/dL POC Glucose (mg/dL) (75-99) mg/dL Plasma Lactic Acid Milton (0.7-2.0) mmol/L AST 250 H (14-36) U/L ALT 95 H (4-34) U/L Alkaline Phosphatase 311 H (38-126) U/L Creatine Kinase 153 H (30-135) U/L Troponin I (0.000-0.034) ng/mL Total Protein (6.3-8.2) g/dL Albumin 3.4 L (3.5-5.0) g/dL Urine Protein (Negative) Urine Blood (Negative) Amorphous Sediment (None) /hpf Urine Bacteria (None) /hpf Hyaline Casts (0-2) /lpf Urine Mucus (None) /hpf 11/27/20 11/28/20 11/28/20 Range/Units 21:50 00:21 00:45 WBC (3.8-10.6) k/uL MCHC (31.0-37.0) g/dL Neutrophils # (Manual) (1.3-7.7) k/uL PT (9.0-12.0) sec INR (<1.2) APTT (22.0-30.0) sec D-Dimer (<0.60) mg/L FEU ABG pH (7.35-7.45) ABG pCO2 (35-45) mmHg ABG pO2 (83-108) mmHg ABG HCO3 (21-25) mmol/L ABG Total CO2 (19-24) mmol/L ABG O2 Saturation (94-97) % Sodium (137-145) mmol/L Chloride (98-107) mmol/L Carbon Dioxide (22-30) mmol/L BUN (7-17) mg/dL Creatinine (0.52-1.04) mg/dL Glucose (74-99) mg/dL POC Glucose (mg/dL) (75-99) mg/dL Plasma Lactic Acid Milton 4.2 H* 2.3 H* (0.7-2.0) mmol/L AST (14-36) U/L ALT (4-34) U/L Alkaline Phosphatase (38-126) U/L Creatine Kinase (30-135) U/L Troponin I (0.000-0.034) ng/mL Total Protein (6.3-8.2) g/dL Albumin (3.5-5.0) g/dL Urine Protein 1+ H (Negative) Urine Blood Small H (Negative) Amorphous Sediment Rare H (None) /hpf Urine Bacteria Rare H (None) /hpf Hyaline Casts 6 H (0-2) /lpf Urine Mucus Occasional H (None) /hpf 11/28/20 11/28/20 11/28/20 Range/Units 00:45 02:37 03:27 WBC (3.8-10.6) k/uL MCHC (31.0-37.0) g/dL Neutrophils # (Manual) (1.3-7.7) k/uL PT (9.0-12.0) sec INR (<1.2) APTT (22.0-30.0) sec D-Dimer (<0.60) mg/L FEU ABG pH (7.35-7.45) ABG pCO2 (35-45) mmHg ABG pO2 (83-108) mmHg ABG HCO3 (21-25) mmol/L ABG Total CO2 (19-24) mmol/L ABG O2 Saturation (94-97) % Sodium (137-145) mmol/L Chloride (98-107) mmol/L Carbon Dioxide (22-30) mmol/L BUN (7-17) mg/dL Creatinine (0.52-1.04) mg/dL Glucose (74-99) mg/dL POC Glucose (mg/dL) 162 H (75-99) mg/dL Plasma Lactic Acid Milton (0.7-2.0) mmol/L AST (14-36) U/L ALT (4-34) U/L Alkaline Phosphatase (38-126) U/L Creatine Kinase (30-135) U/L Troponin I 0.073 H* 0.255 H* (0.000-0.034) ng/mL Total Protein (6.3-8.2) g/dL Albumin (3.5-5.0) g/dL Urine Protein (Negative) Urine Blood (Negative) Amorphous Sediment (None) /hpf Urine Bacteria (None) /hpf Hyaline Casts (0-2) /lpf Urine Mucus (None) /hpf 11/28/20 11/28/20 11/28/20 Range/Units 03:37 03:37 03:51 WBC 17.8 H (3.8-10.6) k/uL MCHC 30.3 L (31.0-37.0) g/dL Neutrophils # (Manual) 17.40 H (1.3-7.7) k/uL PT (9.0-12.0) sec INR (<1.2) APTT (22.0-30.0) sec D-Dimer (<0.60) mg/L FEU ABG pH 7.18 L* (7.35-7.45) ABG pCO2 33 L (35-45) mmHg ABG pO2 143 H (83-108) mmHg ABG HCO3 12 L (21-25) mmol/L ABG Total CO2 13 L (19-24) mmol/L ABG O2 Saturation 98.9 H (94-97) % Sodium 131 L (137-145) mmol/L Chloride (98-107) mmol/L Carbon Dioxide 11 L (22-30) mmol/L BUN 28 H (7-17) mg/dL Creatinine (0.52-1.04) mg/dL Glucose 151 H (74-99) mg/dL POC Glucose (mg/dL) (75-99) mg/dL Plasma Lactic Acid Milton (0.7-2.0) mmol/L AST 413 H (14-36) U/L ALT 134 H (4-34) U/L Alkaline Phosphatase 260 H (38-126) U/L Creatine Kinase (30-135) U/L Troponin I (0.000-0.034) ng/mL Total Protein 5.5 L (6.3-8.2) g/dL Albumin 2.5 L (3.5-5.0) g/dL Urine Protein (Negative) Urine Blood (Negative) Amorphous Sediment (None) /hpf Urine Bacteria (None) /hpf Hyaline Casts (0-2) /lpf Urine Mucus (None) /hpf H & H 11/27/20 11/28/20 Range/Units 21:50 03:37 Hgb 13.7 11.4 (11.4-16.0) gm/dL Hct 44.4 37.5 (34.0-46.0) % Coagulation 11/27/20 Range/Units 21:50 INR 1.7 H (<1.2) Result Diagrams: 11/28/20 03:37 11/28/20 03:37 Assessment and Plan Assessment: 55-year-old female failure to thrive APC type I pelvic fracture with sacral fracture kyphosis, weakness generalized Complex medical history Plan: Patient was seen and examined in the ICU. This is a 55-year-old female with complex medical history as well as difficult history obtaining secondary to current mental state and family matters. She does have a pelvic fracture as well as a sacral fracture. I do feel that due to her inability to ambulate for the past 2 weeks and if this is due to this fracture that she would warrant surgical fixation. This may be in the form of transiliac trans-sacral screws versus bilateral trans-sacral screws versus lumbopelvic fixation due to the deformity at her S1-S2 region with posterior element fracture. We would recommend MRI of her lumbar as well as pelvis area without contrast to evaluate. She however would need trauma as well as neurosurgery evaluation and I do feel that this would be better suited at an outside facility.
[2020-11-28] MEDS ORDERED: NOREPINEPHRIN 4 MG-0.9% NS PMX 4 MG/250 ML ML IV ONE (09:41)
[2020-11-28] MEDS: propofoL 50 ML IV ONE ×2 (09:50→17:06)
[2020-11-28 10:41] LABS: ABG Base Excess -15.7 mmol/L; ABG HCO3 13 mmol/L (21-25); ABG Oxygen Saturation 99.9 % (94-97); ABG PCO2 39 mmHg (35-45); ABG PO2 >400 mmHg (83-108); ABG TCO2 15 mmol/L (19-24); Allen Test Performed? Yes
[2020-11-28] MEDS ORDERED: SODIUM BICARB 8.4% 50 ML SYR (1 MEQ/ML) ONE ×2 (10:44)
[2020-11-28 10:45] LABS: ABG PH 7.14 (7.35-7.45)
[2020-11-28 10:50] LABS: Glucose,Whole Blood 153 mg/dL (75-99)
[2020-11-28] MEDS: SODIUM BICARB 8.4% 50 ML SYR (1 MEQ/ML) ONE (10:57)
--- NOTE | 2020-11-28 11:07 | XR ---
EXAMINATION TYPE: XR chest 1V portable DATE OF EXAM: 11/28/2020 Comparison: 11/28/2020 Clinical History: 55-year-old female central line placement Findings: Left anterior chest wall pacemaker generator with right atrial and right ventricular leads. Right IJ CVC tip at the lower SVC. ET tube tip satisfactory. NG tube sidehole at the level of the GE junction. It could be further advanced into the stomach. Heart normal size. Mild hyperinflation. Patchy right perihilar and left mid lung opacities not signif icantly changed. No pleural effusion. Impression: 1. COPD with patchy right perihilar and left mid lung infiltrates not significantly changed. 2. Right IJ CVC tip at the lower SVC level. 3. NG tube sidehole at the GE junction. Consider advancement into the stomach.
--- NOTE | 2020-11-28 11:10 | XR ---
EXAMINATION TYPE: XR chest 1V portable DATE OF EXAM: 11/28/2020 Comparison: 11/27/2020 Clinical History: 55-year-old female Tube placement Findings: ET tube tip is satisfactory. NG tube sidehole at the level of the GE junction. Left anterior chest wa ll pacemaker generator with right atrial and right ventricular leads. Heart normal size. Hyperinflati on. Old healed right posterior rib fracture deformity. Patchy opacities right hilum and left midlung seem increased from 11/27/2020. Impression: Patchy right perihilar and left midlung opacities may be slightly increased from prior. NG tube sidehole at the GE junction. Consider advancement into the stomach.
[2020-11-28] MEDS ORDERED: propofoL 50 ML IV ONE ×2 (12:06→17:04)
--- NOTE | 2020-11-28 12:47 | P.GSCN ---
History of Present Illness Consult date: 11/28/20 History of present illness: CHIEF COMPLAINT: Altered mental status HISTORY OF PRESENT ILLNESS: This is a 55-year-old female with a known history of left elbow wound with MRSA, COPD, congestive heart failure, hyperlipidemia, hypertension and renal disease. Patient was brought into the hospital due to altered mental status. Please note patient seen and examined in the ICU. She's currently intubated and sedated. History was obtained from chart and nursing staff. Patient apparently had a pelvic fracture after a fall in September. She did not have surgery and was told that she could bear weight. However, patient has not been out of bed for about 2 weeks due to pain. Also she has not been eating and drinking very well over the last several days.. She was brought into the emergency room by her son. Patient had a computed tomography scan of the abdomen and pelvis it does show pelvic fractures involving the sacrum and right pubic symphysis with mild displacement. Extraperitoneal fluid collection extending superiorly from the right pubic symphysis measuring overall 8 x 5 cm and consistent with a hematoma. Patient had elevated d-dimer CT of the chest was negative for PE and Dopplers were negative for DVT. Computed tomography scan of the brain no acute changes. Patient seen by orthopedics as well as cardiology regarding her tachycardia. Surgical consult was requested regarding pelvic hematoma. Patient also evaluated by cardiology who felt patient was in sinus tachycardia and troponin could been elevated due to renal failure and tachycardia. Patient not on a anticoagulation. PAST MEDICAL HISTORY: See list. PAST SURGICAL HISTORY: See list. MEDICATIONS: See list. ALLERGIES: See list. SOCIAL HISTORY: No illicit drug use. REVIEW OF SYSTEMS: Not obtained. Patient intubated and sedated PHYSICAL EXAM: VITAL SIGNS: Reviewed GENERAL: Well-developed in no acute distress. HEENT: No sclera icterus. Extraocular movements grossly intact. Moist buccal mucosa. Head is atraumatic, normocephalic. No nasal drainage. ABDOMEN: Soft. Nondistended. Nontender. No bruising noted NEUROLOGIC: Patient is intubated and sedated LABORATORY DATA: WBC 21.7 down to 17.8 hemoglobin 11.4 d-dimer 6.3 sodium 131 Creatinine 0.98 CO2 11 BUN 28 lactic 4.2 down to 1.5 AST 413 ALT 134 alk phos 260 elevated troponin 0.255 Influenza negative RSV negative Covid not detected IMAGING: computed tomography scan of the abdomen and pelvis it does show pelvic fractures involving the sacrum and right pubic symphysis with mild displacement. Extraper itoneal fluid collection extending superiorly from the right pubic symphysis measuring overall 8 x 5 cm and consistent with a hematoma. ASSESSMENT: 1. Pelvic hematoma 2. Pelvic fracture and sacral fracture 3. Acute respiratory failure requiring intubation 4. Altered mental status PLAN: -Continue ICU management -Continue supportive care -Continue to monitor hemoglobin -Hold off on starting any anticoagulation due to the pelvic hematoma Physician Business Office Technician note has been reviewed by physician. Signing provider agrees with the documented findings, assessment, and plan of care. Past Medical History Past Medical History: Asthma, Heart Failure, COPD, Hyperlipidemia, Hypertension, Renal Disease Additional Past Medical History / Comment(s): Bronchitis, gestational diabetes, braydrcardia, broken pelvis History of Any Multi-Drug Resistant Organisms: MRSA Year Discovered:: February 2019 MDRO Source:: Left elbow Past Surgical History: Appendectomy, Section, Hernia Repair, Hysterectomy, Tonsillectomy Additional Past Surgical History / Comment(s): PACEMAKER (SECOND BATTER REPLACED). surgery May 06 2019 for infection in left elbow, PICC line previously Past Anesthesia/Blood Transfusion Reactions: Previous Problems w/ Anesthesia Additional Past Anesthesia/Blood Transfusion Reaction / Comm: Early waking during procedure Type of Cardiac Device: Permanent Pacemaker Device Placement Date:: 2004 Past Psychological History: Depression Smoking Status: Never smoker Past Alcohol Use History: None Reported Past Drug Use History: None Reported - Past Family History Mother Family Medical History: CVA/TIA, Diabetes Mellitus, Hyperlipidemia, Hypertension, Myocardial Infarction (CO) Father Family Medical History: Coronary Artery Disease (CAD), Diabetes Mellitus Additional Family Medical History / Comment(s): Cardiac stents Medications and Allergies Home Medications Medication Instructions Recorded Confirmed Type predniSONE 5 mg PO DAILY 06/19/18 11/28/20 History rOPINIRole HCL [Requip] 1 mg PO TID 06/19/18 11/28/20 History Furosemide [Lasix] 20 - 40 mg PO DAILY 06/04/19 11/28/20 History PARoxetine [Paxil] 20 mg PO DAILY 06/04/19 11/28/20 History Potassium Chloride ER [K-Dur 10] 20 meq PO DAILY 06/04/19 11/28/20 History Albuterol Inhaler [Ventolin Hfa 2 puff INHALATION RT-Q4H PRN 11/28/20 11/28/20 History Inhaler] Gabapentin [Neurontin] 400 mg PO TID 11/28/20 11/28/20 History HYDROcodone/APAP 7.5-325MG [[place] 1 tab PO Q4-6H PRN 11/28/20 11/28/20 History 7.5-325] Ibuprofen [Motrin] 800 mg PO Q8H PRN 11/28/20 11/28/20 History Meloxicam [Mobic] 7.5 mg PO DAILY 11/28/20 11/28/20 History Zolpidem [Ambien] 5 mg PO HS PRN 11/28/20 11/28/20 History cloNIDine HCL [Catapres] 0.2 mg PO BID PRN 11/28/20 11/28/20 History traMADol HCL 50 mg PO Q6H PRN 11/28/20 11/28/20 History Allergies Allergy/AdvReac Type Severity Reaction Status Date / Time doxycycline [From Vibramycin] Allergy Mild Swelling Verified 11/28/20 09:59 TRABUTALINE Allergy Anaphylaxis Uncoded 11/28/20 09:59 Surgical - Exam Vital Signs Temp Pulse Resp BP Pulse Ox 98.8 F 154 H 22 172/92 94 L 11/27/20 21:20 11/27/20 21:20 11/27/20 21:20 11/27/20 21:20 11/27/20 21:20 Results - Labs 11/28/20 03:37 11/28/20 03:37 Abnormal Lab Results - Last 24 Hours (Table) 11/27/20 11/27/20 11/27/20 Range/Units 21:50 21:50 21:50 WBC 21.7 H (3.8-10.6) k/uL MCHC 30.8 L (31.0-37.0) g/dL Neutrophils # (Manual) 21.40 H (1.3-7.7) k/uL PT 16.6 H (9.0-12.0) sec INR 1.7 H (<1.2) APTT 21.4 L (22.0-30.0) sec D-Dimer 6.83 H (<0.60) mg/L FEU ABG pH (7.35-7.45) ABG pCO2 (35-45) mmHg ABG pO2 (83-108) mmHg ABG HCO3 (21-25) mmol/L ABG Total CO2 (19-24) mmol/L ABG O2 Saturation (94-97) % Sodium 126 L (137-145) mmol/L Chloride 94 L (98-107) mmol/L Carbon Dioxide 11 L (22-30) mmol/L BUN 31 H (7-17) mg/dL Creatinine 1.46 H (0.52-1.04) mg/dL Glucose 164 H (74-99) mg/dL POC Glucose (mg/dL) (75-99) mg/dL Plasma Lactic Acid [place] (0.7-2.0) mmol/L AST 250 H (14-36) U/L ALT 95 H (4-34) U/L Alkaline Phosphatase 311 H (38-126) U/L Creatine Kinase 153 H (30-135) U/L Troponin I (0.000-0.034) ng/mL Total Protein (6.3-8.2) g/dL Albumin 3.4 L (3.5-5.0) g/dL Urine Protein (Negative) Urine Blood (Negative) Amorphous Sediment (None) /hpf Urine Bacteria (None) /hpf Hyaline Casts (0-2) /lpf Urine Mucus (None) /hpf 11/27/20 11/28/20 11/28/20 Range/Units 21:50 00:21 00:45 WBC (3.8-10.6) k/uL MCHC (31.0-37.0) g/dL Neutrophils # (Manual) (1.3-7.7) k/uL PT (9.0-12.0) sec INR (<1.2) APTT (22.0-30.0) sec D-Dimer (<0.60) mg/L FEU ABG pH (7.35-7.45) ABG pCO2 (35-45) mmHg ABG pO2 (83-108) mmHg ABG HCO3 (21-25) mmol/L ABG Total CO2 (19-24) mmol/L ABG O2 Saturation (94-97) % Sodium (137-145) mmol/L Chloride (98-107) mmol/L Carbon Dioxide (22-30) mmol/L BUN (7-17) mg/dL Creatinine (0.52-1.04) mg/dL Glucose (74-99) mg/dL POC Glucose (mg/dL) (75-99) mg/dL Plasma Lactic Acid [place] 4.2 H* 2.3 H* (0.7-2.0) mmol/L AST (14-36) U/L ALT (4-34) U/L Alkaline Phosphatase (38-126) U/L Creatine Kinase (30-135) U/L Troponin I (0.000-0.034) ng/mL Total Protein (6.3-8.2) g/dL Albumin (3.5-5.0) g/dL Urine Protein 1+ H (Negative) Urine Blood Small H (Negative) Amorphous Sediment Rare H (None) /hpf Urine Bacteria Rare H (None) /hpf Hyaline Casts 6 H (0-2) /lpf Urine Mucus Occasional H (None) /hpf 11/28/20 11/28/20 11/28/20 Range/Units 00:45 02:37 03:27 WBC (3.8-10.6) k/uL MCHC (31.0-37.0) g/dL Neutrophils # (Manual) (1.3-7.7) k/uL PT (9.0-12.0) sec INR (<1.2) APTT (22.0-30.0) sec D-Dimer (<0.60) mg/L FEU ABG pH (7.35-7.45) ABG pCO2 (35-45) mmHg ABG pO2 (83-108) mmHg ABG HCO3 (21-25) mmol/L ABG Total CO2 (19-24) mmol/L ABG O2 Saturation (94-97) % Sodium (137-145) mmol/L Chloride (98-107) mmol/L Carbon Dioxide (22-30) mmol/L BUN (7-17) mg/dL Creatinine (0.52-1.04) mg/dL Glucose (74-99) mg/dL POC Glucose (mg/dL) 162 H (75-99) mg/dL Plasma Lactic Acid [place] (0.7-2.0) mmol/L AST (14-36) U/L ALT (4-34) U/L Alkaline Phosphatase (38-126) U/L Creatine Kinase (30-135) U/L Troponin I 0.073 H* 0.255 H* (0.000-0.034) ng/mL Total Protein (6.3-8.2) g/dL Albumin (3.5-5.0) g/dL Urine Protein (Negative) Urine Blood (Negative) Amorphous Sediment (None) /hpf Urine Bacteria (None) /hpf Hyaline Casts (0-2) /lpf Urine Mucus (None) /hpf 11/28/20 11/28/20 11/28/20 Range/Units 03:37 03:37 03:51 WBC 17.8 H (3.8-10.6) k/uL MCHC 30.3 L (31.0-37.0) g/dL Neutrophils # (Manual) 17.40 H (1.3-7.7) k/uL PT (9.0-12.0) sec INR (<1.2) APTT (22.0-30.0) sec D-Dimer (<0.60) mg/L FEU ABG pH 7.18 L* (7.35-7.45) ABG pCO2 33 L (35-45) mmHg ABG pO2 143 H (83-108) mmHg ABG HCO3 12 L (21-25) mmol/L ABG Total CO2 13 L (19-24) mmol/L ABG O2 Saturation 98.9 H (94-97) % Sodium 131 L (137-145) mmol/L Chloride (98-107) mmol/L Carbon Dioxide 11 L (22-30) mmol/L BUN 28 H (7-17) mg/dL Creatinine (0.52-1.04) mg/dL Glucose 151 H (74-99) mg/dL POC Glucose (mg/dL) (75-99) mg/dL Plasma Lactic Acid [place] (0.7-2.0) mmol/L AST 413 H (14-36) U/L ALT 134 H (4-34) U/L Alkaline Phosphatase 260 H (38-126) U/L Creatine Kinase (30-135) U/L Troponin I (0.000-0.034) ng/mL Total Protein 5.5 L (6.3-8.2) g/dL Albumin 2.5 L (3.5-5.0) g/dL Urine Protein (Negative) Urine Blood (Negative) Amorphous Sediment (None) /hpf Urine Bacteria (None) /hpf Hyaline Casts (0-2) /lpf Urine Mucus (None) /hpf 11/28/20 11/28/20 Range/Units 10:39 10:48 WBC (3.8-10.6) k/uL MCHC (31.0-37.0) g/dL Neutrophils # (Manual) (1.3-7.7) k/uL PT (9.0-12.0) sec INR (<1.2) APTT (22.0-30.0) sec D-Dimer (<0.60) mg/L FEU ABG pH 7.14 L* (7.35-7.45) ABG pCO2 (35-45) mmHg ABG pO2 >400 H (83-108) mmHg ABG HCO3 13 L (21-25) mmol/L ABG Total CO2 15 L (19-24) mmol/L ABG O2 Saturation 99.9 H (94-97) % Sodium (137-145) mmol/L Chloride (98-107) mmol/L Carbon Dioxide (22-30) mmol/L BUN (7-17) mg/dL Creatinine (0.52-1.04) mg/dL Glucose (74-99) mg/dL POC Glucose (mg/dL) 153 H (75-99) mg/dL Plasma Lactic Acid [place] (0.7-2.0) mmol/L AST (14-36) U/L ALT (4-34) U/L Alkaline Phosphatase (38-126) U/L Creatine Kinase (30-135) U/L Troponin I (0.000-0.034) ng/mL Total Protein (6.3-8.2) g/dL Albumin (3.5-5.0) g/dL Urine Protein (Negative) Urine Blood (Negative) Amorphous Sediment (None) /hpf Urine Bacteria (None) /hpf Hyaline Casts (0-2) /lpf Urine Mucus (None) /hpf Diabetes panel 11/27/20 11/28/20 Range/Units 21:50 03:37 Sodium 126 L 131 L (137-145) mmol/L Potassium 4.1 3.7 (3.5-5.1) mmol/L Chloride 94 L 107 (98-107) mmol/L Carbon Dioxide 11 L 11 L (22-30) mmol/L BUN 31 H 28 H (7-17) mg/dL Creatinine 1.46 H 0.98 (0.52-1.04) mg/dL Glucose 164 H 151 H (74-99) mg/dL Calcium 9.7 8.4 (8.4-10.2) mg/dL AST 250 H 413 H (14-36) U/L ALT 95 H 134 H (4-34) U/L Alkaline Phosphatase 311 H 260 H (38-126) U/L Total Protein 6.9 5.5 L (6.3-8.2) g/dL Albumin 3.4 L 2.5 L (3.5-5.0) g/dL Thyroid panel 11/27/20 Range/Units 21:50 TSH 1.050 (0.465-4.680) mIU/L Calcium panel 11/27/20 11/28/20 Range/Units 21:50 03:37 Calcium 9.7 8.4 (8.4-10.2) mg/dL Albumin 3.4 L 2.5 L (3.5-5.0) g/dL Pituitary panel 11/27/20 11/28/20 Range/Units 21:50 03:37 Sodium 126 L 131 L (137-145) mmol/L Potassium 4.1 3.7 (3.5-5.1) mmol/L Chloride 94 L 107 (98-107) mmol/L Carbon Dioxide 11 L 11 L (22-30) mmol/L BUN 31 H 28 H (7-17) mg/dL Creatinine 1.46 H 0.98 (0.52-1.04) mg/dL Glucose 164 H 151 H (74-99) mg/dL Calcium 9.7 8.4 (8.4-10.2) mg/dL TSH 1.050 (0.465-4.680) mIU/L Adrenal panel 11/27/20 11/28/20 Range/Units 21:50 03:37 Sodium 126 L 131 L (137-145) mmol/L Potassium 4.1 3.7 (3.5-5.1) mmol/L Chloride 94 L 107 (98-107) mmol/L Carbon Dioxide 11 L 11 L (22-30) mmol/L BUN 31 H 28 H (7-17) mg/dL Creatinine 1.46 H 0.98 (0.52-1.04) mg/dL Glucose 164 H 151 H (74-99) mg/dL Calcium 9.7 8.4 (8.4-10.2) mg/dL Total Bilirubin 0.9 0.9 (0.2-1.3) mg/dL AST 250 H 413 H (14-36) U/L ALT 95 H 134 H (4-34) U/L Alkaline Phosphatase 311 H 260 H (38-126) U/L Total Protein 6.9 5.5 L (6.3-8.2) g/dL Albumin 3.4 L 2.5 L (3.5-5.0) g/dL
[2020-11-28 12:56] VITALS: BMI 16.2
[2020-11-28] MEDS ORDERED: PANTOPRAZOLE 40 MG/10 ML VIAL IVP SCH (13:00)
[2020-11-28 15:16] LABS: Calcium 7.3 mg/dL (8.4-10.2)
[2020-11-28 15:23] LABS: Potassium 2.7 mmol/L (3.5-5.1)
[2020-11-28] MEDS ORDERED: Potassium Replacement Protocol 1 EACH MISC MISCELLANE PRN (15:23)
[2020-11-28] MEDS: POTASSIUM CHLORIDE 20 MEQ in WATER FOR INJECTION 1 100ML.BAG IVPB SCH ×2 (15:39→17:26)
[2020-11-28] MEDS ORDERED: POTASSIUM CHLORIDE 20 MEQ in WATER FOR INJECTION 1 100ML.BAG IVPB STA (15:44)
[2020-11-28 16:02] LABS: ABG HCO3 25 mmol/L (21-25); ABG Oxygen Saturation 99.8 % (94-97); ABG PCO2 38 mmHg (35-45); ABG PH 7.43 (7.35-7.45); ABG PO2 196 mmHg (83-108); ABG TCO2 27 mmol/L (19-24)
--- NOTE | 2020-11-28 16:23 | P.CNPUL ---
History of Present Illness Consult date: 11/28/20 Requesting physician: Joyce Rojas Reason for consult: other (Impending respiratory failure and severe metabolic acidosis.) Chief complaint: Generalized weakness History of present illness: This is a 55-year-old female brought in yesterday to the emergency room by her son, patient was complaining of weakness, and according to the son the patient has been lethargic, and has been unable to cut out of bed for the last 2 weeks. Apparently the patient was recently diagnosed with a pelvic fracture last month by a specialist at [facility]. She was told to ambulate on the fracture as tolerated. And she was told that she is not a surgical candidate. Apparently the patient was brought in with profound weakness, she had no fever no chills, no cough no wheezing, no shortness of breath, he does have history of underlying COPD, she had no abdominal pain. Patient was noted to have leukoc ytosis with WBC count 21.7. Elevated d-dimer of 6.83. Low sodium of 126. And abnormal liver enzymes/elevated transaminases. Chest x-ray is suggestive of bilateral nodular infiltrates and this was also noted on the CT of the chest which ruled out thromboembolic disease/pulmonary embolism. CT of the abdomen and pelvis showed pelvic fracture involving the sacrum and the right pubic symphysis with mild displacement, and there was evidence of extraperitoneal fluid collection extending superiorly from the right pubic symphysis/hematoma. Patient was also noted to have purulent drainage from the left elbow and she did have previous history of MRSA infection. Patient was initially admitted to the regular medical floor, however this morning patient became more and more obtunded and extremely short of breath, she was tachypneic, and was noted to have metabolic acidosis. Looking at her initial electrolytes upon presentation to the ER, she had a bicarb of only 11 and she had a anion gap of 21. Clearly the patient is presenting with a picture of sepsis. Lactic acid initially was 4.2, patient received significant amount of fluid boluses, and follow-up lactic acid was 1.5. However when the patient was transferred to the ICU, she was noted to be in severe respiratory distress, she was hyper ventilating, and she was on BiPAP. Considering her impending respiratory failure, went ahead and recommended intubating the patient, and placed on mechanical ventilation. Follow-up ABG post intubation showed a pO2 of more than 400 pCO2 of 39 however her pH was 7.14, had to give the patient multiple amps of bicarb, and she was placed on a bicarb drip. Initial troponin was less than 0.012, follow-up troponin was 0.255 patient was seen by many consultants, including general surgery, orthopedic surgery, and cardiology as well as general surgery. The recommendation from the orthopedic surgeon was the patient would need trauma as well as a neurosurgery evaluation, and he clearly recommended transferring the patient to a tertiary care center. [facility], and he will work on transferring the patient possibly to [facility]. In the meantime the patient was intubated, and right IJ central line was placed, and the left radial arterial line was placed. She was placed on a bicarb drip, later on broad-spectrum antibiotics, and I have a feeling that the patient is septic. Review of Systems ROS unobtainable: due to endotracheal tube Past Medical History Past Medical History: Asthma, Heart Failure, COPD, Hyperlipidemia, Hypertension, Renal Disease Additional Past Medical History / Comment(s): Bronchitis, gestational diabetes, braydrcardia, broken pelvis History of Any Multi-Drug Resistant Organisms: MRSA Date of last positivie culture/infection: February 2019 MDRO Source:: Left elbow Past Surgical History: Appendectomy, Section, Hernia Repair, Hysterectomy, Tonsillectomy Additional Past Surgical History / Comment(s): PACEMAKER (SECOND BATTER REPLACED). surgery May 06 2019 for infection in left elbow, PICC line previously Past Anesthesia/Blood Transfusion Reactions: Previous Problems w/ Anesthesia Additional Past Anesthesia/Blood Transfusion Reaction / Comment(s): Early waking during procedure Type of Cardiac Device: Permanent Pacemaker Device Placement Date:: 2004 Past Psychological History: Depression Smoking Status: Never smoker Past Alcohol Use History: None Reported Past Drug Use History: None Reported - Past Family History Mother Family Medical History: CVA/TIA, Diabetes Mellitus, Hyperlipidemia, Hypertension, Myocardial Infarction (ID) Father Family Medical History: Coronary Artery Disease (CAD), Diabetes Mellitus Additional Family Medical History / Comment(s): Cardiac stents Medications and Allergies Home Medications Medication Instructions Recorded Confirmed Type predniSONE 5 mg PO DAILY 06/19/18 11/28/20 History rOPINIRole HCL [Requip] 1 mg PO TID 06/19/18 11/28/20 History Furosemide [Lasix] 20 - 40 mg PO DAILY 06/04/19 11/28/20 History PARoxetine [Paxil] 20 mg PO DAILY 06/04/19 11/28/20 History Potassium Chloride ER [K-Dur 10] 20 meq PO DAILY 06/04/19 11/28/20 History Albuterol Inhaler [Ventolin Hfa 2 puff INHALATION RT-Q4H PRN 11/28/20 11/28/20 History Inhaler] Gabapentin [Neurontin] 400 mg PO TID 11/28/20 11/28/20 History HYDROcodone/APAP 7.5-325MG [[place] 1 tab PO Q4-6H PRN 11/28/20 11/28/20 History 7.5-325] Ibuprofen [Motrin] 800 mg PO Q8H PRN 11/28/20 11/28/20 History Meloxicam [Mobic] 7.5 mg PO DAILY 11/28/20 11/28/20 History Zolpidem [Ambien] 5 mg PO HS PRN 11/28/20 11/28/20 History cloNIDine HCL [Catapres] 0.2 mg PO BID PRN 11/28/20 11/28/20 History traMADol HCL 50 mg PO Q6H PRN 11/28/20 11/28/20 History Allergies Allergy/AdvReac Type Severity Reaction Status Date / Time doxycycline [From Vibramycin] Allergy Mild Swelling Verified 11/28/20 09:59 TRABUTALINE Allergy Anaphylaxis Uncoded 11/28/20 09:59 Physical Exam Vitals: Vital Signs Temp Pulse Pulse Resp BP BP Pulse Ox 11/28/20 15:00 117 H 29 H 93/57 99 11/28/20 14:00 115 H 29 H 93/57 100 11/28/20 13:00 114 H 29 H 93/57 99 11/28/20 12:00 99.6 F 112 H 28 H 115/67 99 11/28/20 11:00 124 H 28 H 115/67 100 11/28/20 10:00 120 H 28 H 119/77 99 11/28/20 09:00 130 H 29 H 135/106 100 11/28/20 08:00 130 H 28 H 149/90 97 11/28/20 07:00 97.7 F 128 H 29 H 140/95 97 11/28/20 04:00 97.9 F 130 H 24 140/96 11/28/20 02:10 99.4 F 11/28/20 01:45 126 H 23 144/93 100 11/28/20 01:00 133 H 22 148/89 99 11/28/20 00:00 99 F 147 H 22 182/97 100 11/27/20 23:00 140 H 30 H 181/120 100 11/27/20 22:30 137 H 32 H 197/99 100 11/27/20 22:06 146 H 11/27/20 21:45 143 H 22 163/121 99 11/27/20 21:20 98.8 F 154 H 22 172/92 94 L Intake and Output 11/28/20 11/28/20 11/28/20 06:59 14:59 22:59 Intake Total 1440 Output Total 1201 Balance 239 Intake: IV 890 0.9 @ 75ml/hr 640 Vancomycin 1,000 mg In 250 Sodium Chloride 0.9% 250 ml @ 125 mls/hr IVPB ONCE STA Rx#:[id number] Intake, IV Titration 550 Amount Dextrose 5% in Water 1, 500 000 ml @ 100 mls/hr IV . [id number] OSCAR with Sodium Bicarb (1 Meq/ml) 150 ml Rx#:[id number] cefTRIAXone 1 gm In 50 Sodium Chloride 0.9% 50 ml @ 100 mls/hr IVPB Q24HR OSCAR Rx#:[id number] Output: Urine 1201 Other: Voiding Method Indwelling Catheter Indwelling Catheter Indwelling Catheter Weight 38.9 kg 38.9 kg ABP, PAP, CO, CI - Last 8 Hours Arterial Blood Pressure 114/50 Arterial Blood Pressure 108/50 Arterial Blood Pressure 118/52 Arterial Blood Pressure 103/49 Arterial Blood Pressure 117/52 Physical Exam: Revealed 55-year-old female encephalopathic, obtunded, in severe respiratory distress upon my initial evaluation. On BiPAP. Required immediate intubation shortly after I evaluated the patient. Head: Atraumatic, normocephalic. HEENT:[Neck is supple.] [No neck masses.] [No thyromegaly.] [No JVD.] Extraocular movements intact, pupils equally reactive to light and accommodation, nonicteric. Chest: [No medical chest expansion, crackles at the bases, no rhonchi and no wheezes.] Cardiac Exam: Tachycardic, [Normal S1 and S2, no S3 gallop, 2/6 systolic murmur thought the precordium. Abdomen: [Soft, nontender, no megaly, no rebound, no guarding, normal bowel sounds.] Extremities: Left lower extremity is noted to be internally rotated. Both lower extremities are a bit mottled, diminished pulses bilaterally in lower extremities. Left elbow is wrapped with sterile dressing, had purulent drainage and deep ulcer according to the nurse taking care of the patient Neurological Exam: Patient is awake, however noted to be encephalopathic, confused, nonverbal, does not follow any instructions. Psychiatric: Blunted mood and affect seems encephalopathic Results - Laboratory Findings CBC and BMP: 11/28/20 03:37 11/28/20 14:30 ABG ABG pH 7.14 (7.35-7.45) L* 11/28/20 10:39 ABG pCO2 39 mmHg (35-45) 11/28/20 10:39 ABG pO2 >400 mmHg (83-108) H 11/28/20 10:39 ABG O2 Saturation 99.9 % (94-97) H 11/28/20 10:39 PT/INR, D-dimer PT 16.6 sec (9.0-12.0) H 11/27/20 21:50 INR 1.7 (<1.2) H 11/27/20 21:50 D-Dimer 6.83 mg/L FEU (<0.60) H 11/27/20 21:50 Abnormal lab findings: Abnormal Labs 11/27/20 11/27/20 11/27/20 21:50 21:50 21:50 WBC 21.7 H MCHC 30.8 L Neutrophils # (Manual) 21.40 H PT 16.6 H INR 1.7 H APTT 21.4 L D-Dimer 6.83 H ABG pH ABG pCO2 ABG pO2 ABG HCO3 ABG Total CO2 ABG O2 Saturation ABG Lactic Acid Sodium 126 L Potassium Chloride 94 L Carbon Dioxide 11 L BUN 31 H Creatinine 1.46 H Glucose 164 H POC Glucose (mg/dL) Plasma Lactic Acid [place] Calcium AST 250 H ALT 95 H Alkaline Phosphatase 311 H Creatine Kinase 153 H Troponin I Total Protein Albumin 3.4 L Urine Protein Urine Blood Amorphous Sediment Urine Bacteria Hyaline Casts Urine Mucus 11/27/20 11/28/20 11/28/20 21:50 00:21 00:45 WBC MCHC Neutrophils # (Manual) PT INR APTT D-Dimer ABG pH ABG pCO2 ABG pO2 ABG HCO3 ABG Total CO2 ABG O2 Saturation ABG Lactic Acid Sodium Potassium Chloride Carbon Dioxide BUN Creatinine Glucose POC Glucose (mg/dL) Plasma Lactic Acid [place] 4.2 H* 2.3 H* Calcium AST ALT Alkaline Phosphatase Creatine Kinase Troponin I Total Protein Albumin Urine Protein 1+ H Urine Blood Small H Amorphous Sediment Rare H Urine Bacteria Rare H Hyaline Casts 6 H Urine Mucus Occasional H 11/28/20 11/28/20 11/28/20 00:45 02:37 03:27 WBC MCHC Neutrophils # (Manual) PT INR APTT D-Dimer ABG pH ABG pCO2 ABG pO2 ABG HCO3 ABG Total CO2 ABG O2 Saturation ABG Lactic Acid Sodium Potassium Chloride Carbon Dioxide BUN Creatinine Glucose POC Glucose (mg/dL) 162 H Plasma Lactic Acid [place] Calcium AST ALT Alkaline Phosphatase Creatine Kinase Troponin I 0.073 H* 0.255 H* Total Protein Albumin Urine Protein Urine Blood Amorphous Sediment Urine Bacteria Hyaline Casts Urine Mucus 11/28/20 11/28/20 11/28/20 03:37 03:37 03:51 WBC 17.8 H MCHC 30.3 L Neutrophils # (Manual) 17.40 H PT INR APTT D-Dimer ABG pH 7.18 L* ABG pCO2 33 L ABG pO2 143 H ABG HCO3 12 L ABG Total CO2 13 L ABG O2 Saturation 98.9 H ABG Lactic Acid Sodium 131 L Potassium Chloride Carbon Dioxide 11 L BUN 28 H Creatinine Glucose 151 H POC Glucose (mg/dL) Plasma Lactic Acid [place] Calcium AST 413 H ALT 134 H Alkaline Phosphatase 260 H Creatine Kinase Troponin I Total Protein 5.5 L Albumin 2.5 L Urine Protein Urine Blood Amorphous Sediment Urine Bacteria Hyaline Casts Urine Mucus 11/28/20 11/28/20 11/28/20 10:39 10:48 14:30 WBC MCHC Neutrophils # (Manual) PT INR APTT D-Dimer ABG pH 7.14 L* ABG pCO2 ABG pO2 >400 H ABG HCO3 13 L ABG Total CO2 15 L ABG O2 Saturation 99.9 H ABG Lactic Acid Sodium Potassium 2.7 L* Chloride 108 H Carbon Dioxide BUN 33 H Creatinine Glucose 228 H POC Glucose (mg/dL) 153 H Plasma Lactic Acid [place] Calcium 7.3 L AST ALT Alkaline Phosphatase Creatine Kinase Troponin I Total Protein Albumin Urine Protein Urine Blood Amorphous Sediment Urine Bacteria Hyaline Casts Urine Mucus 11/28/20 15:00 WBC MCHC Neutrophils # (Manual) PT INR APTT D-Dimer ABG pH ABG pCO2 ABG pO2 ABG HCO3 ABG Total CO2 ABG O2 Saturation ABG Lactic Acid 2.1 H Sodium Potassium Chloride Carbon Dioxide BUN Creatinine Glucose POC Glucose (mg/dL) Plasma Lactic Acid [place] Calcium AST ALT Alkaline Phosphatase Creatine Kinase Troponin I Total Protein Albumin Urine Protein Urine Blood Amorphous Sediment Urine Bacteria Hyaline Casts Urine Mucus - Diagnostic Findings CT scan - chest: image reviewed (As noted in HPI) Additional studies: DT of the abdomen and pelvis as noted in HPI. Assessment and Plan Assessment: Impression: Acute anion gap metabolic acidosis, most likely secondary to sepsis, the source could be abdominal in nature or could be from elbow cellulitis, previous history of MRSA. Acute respiratory failure, not hypoxic and not hypercapnic but mostly secondary to severe metabolic acidosis requiring multiple amps of bicarb, and requiring a bicarb drip, and the source of her metabolic acidosis is most likely sepsis and could even be septic shock. Pelvic and sacral fractures, subacute. Acute metabolic encephalopathy Acute kidney injury, most likely secondary to acute tubular necrosis and sepsis. Shock liver History of underlying COPD. History of pacemaker implantation. Dyslipidemia. History of benign essential hypertension. Bilateral nodular infiltrates, could be secondary to aspiration pneumonia or septic emboli possibly. Recommendation: Continue ventilatory support. IV fluids and may use pressors for hemodynamic support if necessary. Continue bicarbonate and sodium bicarb drip. Antibiotics/broad-spectrum patient will be placed on vancomycin and cefepime. Infectious disease to see the patient on consultation. Stabilize the patient and once the patient gets accepted in a tertiary care center, patient should be transferred to evaluate her pelvic fractures based on the recommendation of our orthopedic surgeon. Prognosis is extremely poor and guarded. Will adjust ventilatory settings accordingly based on the ABG. Continue to monitor electrolytes including sodium and potassium as well as renal profile. Cultures including blood and urine and elbow. Culture sputum if possible. Patient is extremely ill, and prognosis is extremely poor Time with Patient: Greater than 30
[2020-11-28 16:25] VITALS: TEMP 101
[2020-11-28 17:14] VITALS: BP 102/62; PULSE 120; RESP 29
--- NOTE | 2020-11-28 17:54 | OP ---
OPERATIVE REPORT OPERATION: Placement of a right IJ triple-lumen catheter. PREOPERATIVE DIAGNOSIS: Acute hypoxic respiratory failure and sepsis. POSTOPERATIVE DIAGNOSIS: Acute hypoxic respiratory failure and sepsis. ANESTHESIA USED: Two mL of 1% lidocaine. PROCEDURE DESCRIPTION: The patient was placed in a Trendelenburg position. The area of the right cervical region was prepared in a sterile fashion and drapes were applied. Then the area was locally anesthetized, and behind the level of the posterior belly of the sternocleidomastoid, the area was locally anesthetized. Then the right IJ vein was easily cannulated. A guidewire was placed. The area around the guidewire was dilated. Then a triple-lumen catheter was inserted over the guidewire, and the guidewire was removed. Good blood flow was noted in the 3 different ports. Line was secured using 3.0 silk sutures. No evidence of any immediate complications. Chest x-ray showed adequate placement. MMODL / IJN: [id number] /
--- NOTE | 2020-11-28 18:01 | OP ---
OPERATIVE REPORT OPERATION: Placement of left radial arterial line. PREOPERATIVE DIAGNOSIS: Acute hypoxic respiratory failure and sepsis. POSTOPERATIVE DIAGNOSIS: Acute hypoxic respiratory failure and sepsis. ANESTHESIA USED: None deployed. PROCEDURE DESCRIPTION: The patient was placed in supine position. The left wrist was prepared in a sterile fashion and drapes were applied. The left radial artery was palpated, cannulated easily, and a guidewire was placed. A Cook's catheter was inserted over the guidewire, and the guidewire was removed. Good blood flow and good waveform were noted. No evidence of any immediate complications. The line was secured using 3.0 silk sutures. MMODL / IJN: [id number] /
--- NOTE | 2020-11-28 18:43 | P.DS ---
Providers Date of admission: 11/28/20 00:34 Expected date of discharge: 11/28/20 Attending physician: Joyce Rojas MD Consults: 11/28/20 00:33 Consult Physician Urgent Consulting Provider: Emma Lima Consult Reason/Comments: acute respiratory failure, AECOPD Do you want consulting provider notified?: Yes 11/28/20 05:41 Consult Physician Urgent Consulting Provider: Emiliano Candelaria Consult Reason/Comments: Elev troponin Do you want consulting provider notified?: Yes 11/28/20 05:53 Consult Physician Routine Consulting Provider: Regulo Murphy Consult Reason/Comments: pelvic fracture Do you want consulting provider notified?: Yes Consult Physician Urgent Consulting Provider: Marin Pickard Consult Reason/Comments: Pelvic hematoma Do you want consulting provider notified?: Yes Primary care physician: Stated None Hospital Course: This is a 55-year-old female brought in yesterday to the emergency room by her son, patient was complaining of weakness, and according to the son the patient has been lethargic, and has been unable to cut out of bed for the last 2 weeks. Apparently the patient was recently diagnosed with a pelvic fracture last month by a specialist at [facility]. She was told to ambulate on the fracture as tolerated. And she was told that she is not a surgical candidate. Apparently the patient was brought in with profound weakness, she had no fever no chills, no cough no wheezing, no shortness of breath, he does have history of underlying COPD, she had no abdominal pain. Patient was noted to have leukocytosis with WBC count 21.7. Elevated d-dimer of 6.83. Low sodium of 126. And abnormal liver enzymes/elevated transaminases. Chest x-ray is suggestive of bilateral nodular infiltrates and this was also noted on the CT of the chest which ruled out thromboembolic disease/pulmonary embolism. CT of the abdomen and pelvis showed pelvic fracture involving the sacrum and the right pubic symphysis with mild displacement, and there was evidence of extraperitoneal fluid collection extending superiorly from the right pubic symphysis/hematoma. Patient was also noted to have purulent drainage from the left elbow and she did have previous history of MRSA infection. Patient was initially admitted to the regular medical floor, however this morning patient became more and more obtunded and extremely short of breath, she was tachypneic, and was noted to have metabolic acidosis. Looking at her initial electrolytes upon presentation to the ER, she had a bicarb of only 11 and she had a anion gap of 21. Clearly the patient is presenting with a picture of sepsis. Lactic acid initially was 4.2, patient received significant amount of fluid boluses, and follow-up lactic acid was 1.5. However when the patient was transferred to the ICU, she was noted to be in severe respiratory distress, she was hyper ventilating, and she was on BiPAP. Considering her impending respiratory failure, went ahead and recommended intubating the patient, and placed on mechanical ventilation. Follow-up ABG post intubation showed a pO2 of more than 400 pCO2 of 39 however her pH was 7.14, had to give the patient multiple amps of bicarb, and she was placed on a bicarb drip. Initial troponin was less than 0.012, follow-up troponin was 0.255 patient was seen by many consultants, including general surgery, orthopedic surgery, and cardiology as well as general surgery. The recommendation from the orthopedic surgeon was the patient would need trauma as well as a neurosurgery evaluation, and he clearly recommended transferring the patient to a tertiary care center. Patient's was admitted to the intensive care unit and was treated with aggressive IV fluid hydration and antibiotic in the form of vancomycin and ceftriaxone. Secondary to worsening mental status and increased work of breathing patient was intubated and mechanically ventilated. He was found to have significant metabolic acidosis on presentation that improved with IV fluid hydration and sodium bicarb. Below is a list of her medical problems 1. Left-sided post cellulitis with chronic pressure ulcer with evidence of tunneling and drainage and history of MRSA infection 2. Acute toxo metabolic encephalopathy 3. Acute metabolic acidosis 4. Subacute pelvic and sacral fracture 5. Acute kidney injury 6. Underlying COPD 7. History of pacemaker implantation Patient will be transferred to [facility]. Her overall prognosis is guarded. I did discuss her guarded condition with her son, and DURABLE POWER OF EYELETTER, [place] over the phone. Patient Condition at Discharge: Serious Plan - Discharge Summary New Discharge Prescriptions: No Action rOPINIRole HCL [Requip] 1 mg PO TID predniSONE 5 mg PO DAILY PARoxetine [Paxil] 20 mg PO DAILY Potassium Chloride ER [K-Dur 10] 20 meq PO DAILY Furosemide [Lasix] 20 - 40 mg PO DAILY Zolpidem [Ambien] 5 mg PO HS PRN PRN Reason: Insomnia traMADol HCL 50 mg PO Q6H PRN PRN Reason: Pain Meloxicam [Mobic] 7.5 mg PO DAILY Ibuprofen [Motrin] 800 mg PO Q8H PRN PRN Reason: Pain HYDROcodone/APAP 7.5-325MG [[place] 7.5-325] 1 tab PO Q4-6H PRN PRN Reason: Pain Gabapentin [Neurontin] 400 mg PO TID cloNIDine HCL [Catapres] 0.2 mg PO BID PRN PRN Reason: Blood Pressure Albuterol Inhaler [Ventolin Hfa Inhaler] 2 puff INHALATION RT-Q4H PRN PRN Reason: Shortness Of Breath Discharge Medication List predniSONE 5 mg PO DAILY 06/19/18 [History] rOPINIRole HCL [Requip] 1 mg PO TID 06/19/18 [History] Furosemide [Lasix] 20 - 40 mg PO DAILY 06/04/19 [History] PARoxetine [Paxil] 20 mg PO DAILY 06/04/19 [History] Potassium Chloride ER [K-Dur 10] 20 meq PO DAILY 06/04/19 [History] Albuterol Inhaler [Ventolin Hfa Inhaler] 2 puff INHALATION RT-Q4H PRN 11/28/20 [History] Gabapentin [Neurontin] 400 mg PO TID 11/28/20 [History] HYDROcodone/APAP 7.5-325MG [[place] 7.5-325] 1 tab PO Q4-6H PRN 11/28/20 [History] Ibuprofen [Motrin] 800 mg PO Q8H PRN 11/28/20 [History] Meloxicam [Mobic] 7.5 mg PO DAILY 11/28/20 [History] Zolpidem [Ambien] 5 mg PO HS PRN 11/28/20 [History] cloNIDine HCL [Catapres] 0.2 mg PO BID PRN 11/28/20 [History] traMADol HCL 50 mg PO Q6H PRN 11/28/20 [History] Follow up Appointment(s)/Referral(s): None,Stated [Primary Care Provider] - 1-2 days Discharge Disposition: OTHER INSTITUTION NOT DEFINED
--- NOTE | 2020-11-28 18:45 | P.PN ---
Progress Note - Text Progress Note Date: 11/28/20 Today, I had a prolonged discussion over the phone with the patient's son, and DURABLE POWER OF NETWORK SUPPORT ANALYST, Rk. We discussed her current clinical condition and her guarded prognosis. We also discussed goals of care and he indicated that he wanted the patient to be full code and get everything possible. Discussed the instability of her sacral fracture and recommendation by orthopedic transfer patient to a tertiary care facility for neurosurgery evaluation. He also had a lot of questions regarding her overall condition which I answered fully to his satisfaction. He agreed to transfer patient to [facility]. Time spent greater than 16 minutes
--- NOTE | 2020-11-28 18:56 | ECHOF ---
Referral Reason:Troponin MEASUREMENTS -------- HEIGHT: 154.9 cm WEIGHT: 38.6 kg BP: 140/96 IVSd: 1.0 cm (0.6 - 1.1) LVIDd: 3.8 cm (3.9 - 5.3) LVPWd: 1.0 cm (0.6 - 1.1) IVSs: 1.4 cm LVIDs: 2.9 cm LVPWs: 1.3 cm LA Diam: 2.4 cm (2.7 - 3.8) RVIDd: 2.0 cm (< 3.3) Ao Diam: 3.0 cm (2.0 - 3.7) AV Cusp: 1.4 cm (1.5 - 2.6) EPSS: 0.7 cm MV E Lam: 0.96 m/s MV DecT: 122 ms MV A Lam: 0.46 m/s MV E/A Ratio: 2.06 AR PHT: 415 ms RAP: 5.00 mmHg RVSP: 30.78 mmHg MV EF SLOPE: 193.95 mm/s (70 - 150) MV EXCURSION: 12.41 mm (> 18.000) FINDINGS -------- Resting tachycardia (HR>100bpm). This was a technically adequate study. The left ventricular size is normal. Left ventricular wall thickness is normal. Overall left vent ricular systolic function is severely impaired with, an EF between 20 - 25 %. Apical anterior LV wa ll motion is akinetic. Apical lateral LV wall motion is akinetic. Apical inferior LV wall motio n is akinetic. Apical septum LV wall motion is akinetic. The right ventricle is normal in size. The left atrium is normal in size. The right atrium is normal in size. Interatrial and interventricular septum intact. There is mild aortic valve sclerosis. There is mild aortic regurgitation. The mitral valve leaflets are mildly thickened. Mild mitral annular calcification present. Mild m itral regurgitation is present. Mild tricuspid regurgitation present. Right ventricular systolic pressure is normal at < 35 mmHg. The pulmonic valve is normal. The aortic root size is normal. Normal inferior vena cava with normal inspiratory collapse consistent with estimated right atrial pre ssure of 5 mmHg. There is no pericardial effusion. CONCLUSIONS -------- 1. Resting tachycardia (HR>100bpm). 2. The left ventricular size is normal. 3. Left ventricular wall thickness is normal. 4. Overall left ventricular systolic function is severely impaired with, an EF between 20 - 25 %. 5. Apical anterior LV wall motion is akinetic. 6. Apical lateral LV wall motion is akinetic. 7. Apical inferior LV wall motion is akinetic. 8. Apical septum LV wall motion is akinetic. 9. There is mild aortic valve sclerosis. 10. There is mild aortic regurgitation. 11. The mitral valve leaflets are mildly thickened. 12. Mild mitral annular calcification present. 13. Mild mitral regurgitation is present. 14. Mild tricuspid regurgitation present. 15. There is no pericardial effusion. [place] JUDGE: Paula Golden RDCS
[2020-11-28] MEDS ORDERED: CHLORHEXIDINE GLUCONATE 15 ML CUP MUCOUS MEM SCH (21:00)
[2020-11-29] MEDS ORDERED: VANCOMYCIN 750 MG in SODIUM CHLORIDE 0.9% 250 ML IVPB SCH (06:00)
[2020-11-30] MEDS ORDERED: VANCOMYCIN 750 MG in SODIUM CHLORIDE 0.9% 250 ML IVPB SCH (01:30)
== END 2020-11-28 18:03 | disposition short-term general hospital (02) | DRG 871 ==
LOC: EC 21:15 → 3SCARD 11-28 00:34 → 2SICU 11-28 01:14
PROVIDERS: ADMIT Internal Medicine; ATTEND Internal Medicine
PROC: 02HV33Z Insertion of Infusion Device into Superior Vena Cava, Percutaneous Approach (ICD-10-PCS; principal; 2020-11-28)
PROC: 4A133J1 Monitoring of Arterial Pulse, Peripheral, Percutaneous Approach (ICD-10-PCS; 2020-11-28)
PROC: 03HY32Z Insertion of Monitoring Device into Upper Artery, Percutaneous Approach (ICD-10-PCS; 2020-11-28)
PROC: 4A133B1 Monitoring of Arterial Pressure, Peripheral, Percutaneous Approach (ICD-10-PCS; 2020-11-28)
PROC: 5A09357 Assistance with Respiratory Ventilation, Less than 24 Consecutive Hours, Continuous Positive Airway Pressure (ICD-10-PCS; 2020-11-28)
PROC: 5A1935Z Respiratory Ventilation, Less than 24 Consecutive Hours (ICD-10-PCS; 2020-11-28)
PROC: 0BH17EZ Insertion of Endotracheal Airway into Trachea, Via Natural or Artificial Opening (ICD-10-PCS; 2020-11-28)
PROC: 0D9670Z Drainage of Stomach with Drainage Device, Via Natural or Artificial Opening (ICD-10-PCS; 2020-11-28)
DX: A41.9 Sepsis, unspecified organism (principal); G92 Toxic encephalopathy; R65.21 Severe sepsis with septic shock; J96.01 Acute respiratory failure with hypoxia; N17.0 Acute kidney failure with tubular necrosis; K72.00 Acute and subacute hepatic failure without coma; E87.1 Hypo-osmolality and hyponatremia; E87.2 Acidosis; J44.1 Chronic obstructive pulmonary disease with (acute) exacerbation; L03.116 Cellulitis of left lower limb; I47.1 Supraventricular tachycardia; E78.5 Hyperlipidemia, unspecified; S32.591G Other specified fracture of right pubis, subsequent encounter for fracture with delayed healing; S32.1 Fracture of sacrum; I11.0 Hypertensive heart disease with heart failure; I50.9 Heart failure, unspecified; R62.7 Adult failure to thrive; Z20.822 Contact with and (suspected) exposure to COVID-19; N94.89 Other specified conditions associated with female genital organs and menstrual cycle; E86.0 Dehydration; F32.9 Major depressive disorder, single episode, unspecified; Z95.0 Presence of cardiac pacemaker; Z91.81 History of falling; Z90.710 Acquired absence of both cervix and uterus; Z86.32 Personal history of gestational diabetes; Z86.14 Personal history of Methicillin resistant Staphylococcus aureus infection; Z83.3 Family history of diabetes mellitus; Z82.49 Family history of ischemic heart disease and other diseases of the circulatory system; Z79.899 Other long term (current) drug therapy; Z79.1 Long term (current) use of non-steroidal anti-inflammatories (NSAID); Z88.1 Allergy status to other antibiotic agents; Z90.49 Acquired absence of other specified parts of digestive tract; Z90.89 Acquired absence of other organs; Z98.891 History of uterine scar from previous surgery; Z98.890 Other specified postprocedural states
CPT/HCPCS: 36415; 36600; 70450; 71045; 71275; 74176; 80048; 80053; 81001; 82550; 82805; 83605; 83735; 83880; 84443; 84484; 85025; 85379; 85610; 85730; 87040; 87070; 87205; 87636; 93005; 93306; 93970; 94002; 94660; 96361; 96365; 96366; 96375; 99291